=== PATIENT | female | born 1980 | race Caucasian/White ===

== ENCOUNTER 2016-06-19 18:40 | Emergency (ER) | payer SELFPAY ==
[2016-06-19 18:50] VITALS: BP 100/62
[2016-06-19] MEDS ORDERED: predniSONE TAB* 20 MG PO ONE (18:59)
[2016-06-19] MEDS ORDERED: Albuterol 2.5 MG/3 ML NEB.SOL* (0.083%) INH ONE (18:59)
[2016-06-19] MEDS ORDERED: Benzonatate CAP* 100 MG PO ONE (19:04)
[2016-06-19] MEDS ORDERED: Oseltamivir CAP* 75 MG PO ONE (19:45)
--- NOTE | 2016-06-19 19:52 | RAD ---
INDICATION: Cough and chest congestion COMPARISON: None TECHNIQUE: PA and lateral views of the chest were obtained. FINDINGS: The heart and mediastinum are normal in size and contour. The lungs are grossly clear. There is no evidence of large pleural effusion. Visualized bones are normal for the patient's age. There is no radiographic evidence of free air beneath the diaphragm IMPRESSION: No radiographic evidence of acute cardiopulmonary disease.
--- NOTE | 2016-06-19 21:00 | UC ---
Dar Crockett Erika, scribed for Natali Guzman MD on 06/19/16 at 1904 . Respiratory Complaint HPI - HPI Summary HPI Summary: Patient is a 35-year-old female presenting to [facility] with a CC of cough. Patient reports she developed a nonproductive cough 1 week ago, which has significantly worsened in the last 2 days. Pt notes SOB and chest pain related to the cough. Associated symptoms include chills, diaphoresis, fatigue, sore throat, and dizziness. She states she has not taken her temperature. She denies pedal edema and calf tenderness. Patient reports she has not taken any OTC medication. She denies Hx asthma, DVT, PE. FHx CAD. Pt reports she is a former smoker who quit a few years ago, and she has passive exposure to smoke. Patient lives with her 4 children. [facility] 05/25/2016 - pt reports she has been abstinent. PSHx tubal ligation. - History of Current Complaint Chief Complaint: UCGeneralIllness Stated Complaint: COUGH AND CHEST CONGESTION Time Seen by Provider: 06/19/16 18:50 Hx Obtained From: Patient Hx Last Menstrual Period: 05/25/16 Onset/Duration: Gradual Onset, Lasting Weeks - 1 week, Still Present, Worse Since - 2 days Severity Initially: Mild Severity Currently: Moderate Pain Intensity: 0 Pain Scale Used: 0-10 Numeric Character: Cough: Nonproductive Aggravating Factors: Deep Breaths Alleviating Factors: Nothing Associated Signs And Symptoms: Positive: Chills, Dizziness. Negative: Calf Pain , Calf Swelling - Allergies/Home Medications Allergies/Adverse Reactions: Allergies Allergy/AdvReac Type Severity Reaction Status Date / Time Latex Allergy Rash Verified 02/09/15 16:18 Environmental Allergy Eyes Uncoded 02/09/15 16:18 Itchy/Swollen/Red/Watery PMH/Surg Hx/FS Hx/Imm Hx Endocrine History Of: Denies: Diabetes Respiratory History Of: Denies: Asthma GI/ History Of: Reports: Gastroesophageal Reflux, Gall Bladder Disease - removed. Cancer History Of: Denies: Lung Cancer Other History Of: Negative For: Anticoagulant Therapy - Surgical History Surgical History: Yes Surgery Procedure, Year, and Place: 4 C-sections,gallbladder 12/2011, tubal ligation - Family History Known Family History: Positive: Cardiac Disease - Social History Occupation: Employed Full-time Lives: With Family Alcohol Use: None Substance Use Type: None Smoking Status (MU): Former Smoker Have You Smoked in the Last Year: No When Did the Patient Quit Smoking/Using Tobacco: 2 years ago Household Exposure Type: Cigarettes - Immunization History Most Recent Tetanus Shot: Within last 10 years Review of Systems Constitutional: Chills, Fatigue, Other - diaphoresis Skin: Negative Eyes: Negative ENT: Sore Throat Respiratory: Shortness Of Breath, Cough Cardiovascular: Negative Gastrointestinal: Negative Genitourinary: Negative Motor: Negative Neurovascular: Negative Musculoskeletal: Negative Neurological: Other - dizziness Psychological: Negative All Other Systems Reviewed And Are Negative: Yes Physical Exam Triage Information Reviewed: Yes Appearance: Well-Appearing, Well-Nourished, Pain Distress - mild Vital Signs: Initial Vital Signs Temp 98.6 F 06/19/16 18:45 Pulse 107 06/19/16 18:45 Resp 20 06/19/16 18:45 BP 100/62 06/19/16 18:45 Pulse Ox 97 06/19/16 18:45 tachycardia noted Vital Signs Reviewed: Yes Eyes: Positive: Conjunctiva Clear, Other: - EOMI ENT: Positive: Normal ENT inspection Neck: Positive: Supple Respiratory: Positive: Decreased breath sounds, Wheezing, Other: - Cannot take a deep breath without coughing Cardiovascular: Positive: No Murmur, Pulses Normal, Brisk Capillary Refill, Tachycardia Abdomen Description: Positive: Nontender, No Organomegaly, Soft. Negative: Distended, Guarding, McBurney's Point Tenderness, Peritoneal Signs, Pulsatile Mass Bowel Sounds: Positive: Present Musculoskeletal: Positive: Strength Intact, ROM Intact, Other: - No calf tenderness Neurological: Positive: Alert, Muscle Tone Normal Psychological Exam: Normal Skin Exam: Normal UC Diagnostic Evaluation - Laboratory O2 Sat by Pulse Oximetry: 97 Diagnostic Studies Comment: Influenza A: Negative. Influenza B: Positive. Rapid Strep: Negative. CXR read by radiologist - IMPRESSION: No radiographic evidence of acute cardiopulmonary disease. Re-Evaluation - Re-Evaluation First Eval Re-Evaluation Time: 19:38 Change: Improved Comment: Patient was able to do the nebulizer. Much better inspirations. Increased aeration. Respiratory Course/Dx - Course Course Of Treatment: pt with resp distress and wheezing with influenza B. Will treat with tamiflu because of the respiratory status and do not want pt to develop influenza pneumonia. Consider that pt qualifies to start the tamiflu because her symptoms acutely worsened less than 48 hrs ago. - Differential Dx/Diagnosis Differential Diagnosis/HQI/PQRI: Asthma, Bronchitis, Influenza, Lower Resp Infection Provider Diagnoses: 1. Influenza B. 2. Bronchitis. 3. Bronchospasm Discharge - Discharge Plan Condition: Stable Disposition: HOME Prescriptions: Albuterol HFA INHALER* [Ventolin HFA Inhaler*] 2 puff INH Q4H PRN #1 mdi PRN Reason: Cough Benzonatate CAP* [Tessalon 100 MG CAP*] 100 mg PO TID PRN #20 cap PRN Reason: Cough Oseltamivir CAP* [Tamiflu CAP*] 75 mg PO BID #10 cap guaiFENesin/CODIEN 100MG-10MG* [Robitussin AC 100Mg-10Mg*] 5 ml PO Q4H PRN #100 ml MDD 20ml PRN Reason: Cough predniSONE TAB* [Deltasone TAB*] 40 mg PO DAILY #10 tab Patient Education Materials: Acute Bronchitis (ED), Bronchospasm (ED), Influenza (ED) Forms: *Work Release Referrals: Leslie Villar MD [Primary Care Provider] - 2 Days The documentation as recorded by the Dar christy Erika accurately reflects the service I personally performed and the decisions made by , Natali Guzman MD.
== END 2016-06-19 20:21 | disposition home or self-care (01) ==
LOC: UCEAST 18:40
DX: J11.1 Influenza due to unidentified influenza virus with other respiratory manifestations (principal); J40 Bronchitis, not specified as acute or chronic; J98.01 Acute bronchospasm; K21.9 Gastro-esophageal reflux disease without esophagitis; Z87.891 Personal history of nicotine dependence; Z91.040 Latex allergy status; Z90.49 Acquired absence of other specified parts of digestive tract
CPT/HCPCS: 71020; 87502; 87651; 99213; A9270-GY; G0463; J7512

== ENCOUNTER 2016-10-22 13:31 | Emergency (ER) | payer OTHER ==
[2016-10-22] MEDS ORDERED: NS 0.9% 1000 ML* 1,000 ML IV ONE ×2 (15:17→18:36)
[2016-10-22] MEDS ORDERED: Ketorolac INJ* 30 MG/ML 1 ML VIAL IV ONE ×2 (15:17→18:36)
[2016-10-22 15:33] LABS: Hematocrit 39 % (35-47); Hemoglobin 12.8 g/dl (12.0-16.0); Mean Corpuscular HGB Conc 33 g/dl (31-36); Mean Corpuscular Hemoglobin 29 pg (27-31); Mean Corpuscular Volume 87 fL (80-97); Mean Platelet Volume 8 um3 (7.4-10.4); Red Blood Count 4.46 10^6/ul (4.0-5.4); Red Cell Distribution Width 14 % (10.5-15); White Blood Count 11.8 10^3/ul (3.5-10.8)
[2016-10-22 15:51] LABS: Albumin 4.1 g/dL (3.2-5.2); C Reactive Protein 2.37 mg/L (< 5.00); Calcium 9.2 mg/dL (8.6-10.3); EGFR African American 92.3 (>60); EGFR Non-African American 71.8 (>60); Globulin 3.3 g/dL (2-4); Potassium 3.9 mmol/L (3.5-5.0); Total Bilirubin 0.8 mg/dL (0.2-1.0); Total Protein 7.4 g/dL (6.4-8.9)
--- NOTE | 2016-10-22 16:03 | RAD ---
Indication: RIGHT upper quadrant abdominal pain. Post cholecystectomy. Comparison: June 18, 2014 Technique: RIGHT upper quadrant ultrasound. Report: Appropriate direction flow documented in the portal and hepatic veins. 16.3 cm liver is normal in echogenicity. Negative for focal hepatic lesions. Negative for intrahepatic biliary dilatation. Well visualized 7.6 mm common bile duct without conspicuous ductal stones. Post cholecystectomy. Unremarkable well visualized pancreas. Negative for pancreatic duct dilatation. Negative for ascites. 10.7 x 4.2 x 5.4 cm RIGHT kidney is unremarkable. IMPRESSION: Post cholecystectomy likely accounting for borderline prominence of the common bile duct without visualized intrahepatic biliary dilatation. No ductal stones visualized. Tenderness at the RIGHT upper quadrant noted on exam.
[2016-10-22 17:37] LABS: Urine Bilirubin Negative (Negative); Urine Glucose Negative (Negative); Urine Nitrite Negative (Negative)
[2016-10-22] MEDS ORDERED: Ondansetron INJ* 2 MG/ML VIAL IV ONE (18:36)
--- NOTE | 2016-10-22 18:55 | ED ---
Kae Crockett Alfonso, scribed for Hardeep Grewal MD on 10/22/16 at 1512 . Abdominal Pain/Female - HPI Summary HPI Summary: This patient is a 35 year old F BIBA to [facility] accompanied by female with a chief complaint of RUQ abdominal pain since 1300 today. The pain radiates to her back. The CC is described as it felt like I got punched in the stomach and sharp. The patient rates the pain 7/10 in severity. Symptoms aggravated by nothing. Symptoms alleviated by nothing. Patient reports vomiting, and back pain. - History of Current Complaint Chief Complaint: EDAbdPain Stated Complaint: ABD PAIN Time Seen by Provider: 10/22/16 14:56 Hx Obtained From: Patient Onset/Duration: Sudden Onset, Lasting Hours - 1300 today, Still Present Timing: Constant Severity Initially: Moderate Severity Currently: Moderate Pain Intensity: 7 Pain Scale Used: 0-10 Numeric Location: Discrete At: RUQ Radiates: Yes Radiates to: Back Character: Sharp, Other: - it felt like I got punched in the stomach and sharp Aggravating Factor(s): Nothing Alleviating Factor(s): Nothing Associated Signs and Symptoms: Positive: Other: - vomiting, and back pain. Allergies/Adverse Reactions: Allergies Allergy/AdvReac Type Severity Reaction Status Date / Time Latex Allergy Rash Verified 10/22/16 13:41 Environmental Allergy Eyes Uncoded 10/22/16 13:41 Itchy/Swollen/Red/Watery PMH/Surg Hx/FS Hx/Imm Hx Endocrine/Hematology History: Reports: Hx Anemia Denies: Hx Anticoagulant Therapy, Hx Blood Disorders, Hx Blood Transfusions, Hx Bone Marrow Disease, Hx Diabetes, Hx Systemic Lupus Erythematosus, Hx Sickle Cell Disease, Hx Thyroid Disease, Hx Unexplained Bleeding, Other Endocrine/ Hematological Disorders Cardiovascular History: Reports: Hx Hypotension, Hx Syncope Denies: Hx Aneurysm, Hx Angina, Hx Angioplasty, Hx Auto Implanted Cardiovert Defib, Hx Cardiac Arrest, Hx Cardiomegaly, Hx Congenital Heart Disease, Hx Congestive Heart Failure, Hx Coronary Artery Disease, Hx Deep Vein Thrombosis, Hx Hypercholesterolemia, Hx Hypertension, Hx Myocardial Infarction, Hx Pacemaker /ICD, Hx Peripheral Vascular Disease, Hx Rheumatic Fever, Hx Valvular Heart Disease, Other Cardiovascular Problems/Disorders Respiratory History: Reports: Hx Seasonal Allergies Denies: Hx Asthma, Hx Chronic Bronchitis, Hx Chronic Obstructive Pulmonary Disease (COPD), Hx Cystic Fibrosis, Hx Lung Cancer, Hx Pleural Effusion, Hx Pneumonia, Hx Pulmonary Edema, Hx Pulmonary Embolism, Hx Sleep Apnea, Other Respiratory Problems/Disorders GI History: Reports: Hx Gall Bladder Disease - removed. Denies: Hx Cirrhosis, Hx Crohn's Disease, Hx Diverticulosis, Hx Gastroesophageal Reflux Disease, Hx Gastrointestinal Bleed, Hx Hiatal Hernia, Hx Irritable Bowel, Hx Jaundice, Hx Obstructive Bowel, Hx Ileostomy, Hx Pyloric Stenosis, Hx Ulcer, Hx Urosepsis, Other GI Disorders History: Denies: Hx Acute Renal Failure, Hx Benign Prostatic Hyperplasia, Hx Chronic Renal Failure, Hx Dialysis, Hx Kidney Infection, Hx Kidney Stones, Hx Renal Disease, Other Problems/Disorders Musculoskeletal History: Reports: Hx Back Problems Denies: Hx Arthritis, Hx Bursitis, Hx Congenital Bone Abnormalities, Hx Fibromyalgia, Hx Gout, Hx Orthopedic Injury, Hx Osteoporosis, Hx Scoliosis, Hx Tendonitis, Other Musculoskeletal History Sensory History: Denies: Hx Cataracts, Hx Contacts or Glasses, Hx Glaucoma, Hx Hearing Aid Opthamlomology History: Denies: Hx Cataracts, Hx Contacts or Glasses, Hx Glaucoma Neurological History: Denies: Hx Dementia, Hx Developmental Delay, Hx Headaches, Hx Migraine, Hx Seizures, Hx Spinal Cord Injury, Hx Transient Ischemic Attacks (TIA), Other Neuro Impairments/Disorders Psychiatric History: Denies: Hx Anxiety, Hx Attention Deficit Hyperactivity Disorder, Hx Eating Disorder, Hx Depression, Hx Panic Disorder, Hx Post Traumatic Stress Disorder, Hx Inpatient Treatment, Hx Community Mental Health Tx, Hx Schizophrenia, Hx Bipolar Disorder, Hx Suicide Attempt, Hx Substance Abuse, Other Psychiatric Issues/Disorders - Cancer History Hx Chemotherapy: No - Surgical History Surgery Procedure, Year, and Place: 4 C-sections,gallbladder 12/2011, tubal ligation Hx Anesthesia Reactions: No Infectious Disease History: No Infectious Disease History: Denies: Hx Clostridium Difficile, Hx Hepatitis, Hx Human Immunodeficiency Virus (HIV), Hx of Known/Suspected MRSA, Hx Shingles, Hx Tuberculosis, Hx Known/ Suspected VRE, Hx Known/Suspected VRSA, History Other Infectious Disease, Traveled Outside the [place] in Last 30 Days - Family History Known Family History: Positive: Cardiac Disease - Social History Alcohol Use: Occasionally Substance Use Type: Reports: None Smoking Status (MU): Former Smoker Have You Smoked in the Last Year: No Review of Systems Positive: Abdominal Pain, Vomiting Positive: Other - Back pain All Other Systems Reviewed And Are Negative: Yes Physical Exam Triage Information Reviewed: Yes Vital Signs On Initial Exam: Initial Vitals Temp Pulse Resp BP Pulse Ox 98.4 F 66 15 106/69 99 10/22/16 13:38 10/22/16 13:38 10/22/16 13:38 10/22/16 13:38 10/22/16 13:38 Vital Signs Reviewed: Yes Appearance: Positive: Well-Appearing, No Pain Distress Skin: Positive: Warm, Skin Color Reflects Adequate Perfusion, Dry Head/Face: Positive: Normal Head/Face Inspection Eyes: Positive: Normal ENT: Positive: Normal ENT inspection Neck: Positive: Supple, Nontender Respiratory/Lung Sounds: Positive: Clear to Auscultation, Breath Sounds Present Cardiovascular: Positive: RRR Abdomen Description: Positive: Soft, Other: - Mild RUQ tenderness Bowel Sounds: Positive: Present Musculoskeletal: Positive: Normal Neurological: Positive: Normal, Sensory/Motor Intact, Alert, Oriented to Person Place, Time, CN Intact II-III Psychiatric: Positive: Affect/Mood Appropriate - Cristian Coma Scale Coma Scale Total: 15 Diagnostics - Vital Signs Vital Signs Temp Pulse Resp BP Pulse Ox 10/22/16 14:30 58 102/63 97 10/22/16 14:00 63 105/64 98 10/22/16 13:44 63 111/70 99 10/22/16 13:38 98.4 F 66 15 106/69 99 - Laboratory Lab Results: Lab Results 10/22/16 10/22/16 10/22/16 Range/Units 15:25 15:25 15:25 WBC 11.8 H (3.5-10.8) 10^3/ul RBC 4.46 (4.0-5.4) 10^6/ul Hgb 12.8 (12.0-16.0) g/dl Hct 39 (35-47) % MCV 87 (80-97) fL MCH 29 (27-31) pg MCHC 33 (31-36) g/dl RDW 14 (10.5-15) % Plt Count 235 (150-450) 10^3/ul MPV 8 (7.4-10.4) um3 Neut % (Auto) 76.5 (38-83) % Lymph % (Auto) 13.7 L (25-47) % Moody % (Auto) 7.3 (1-9) % Eos % (Auto) 2.2 (0-6) % Baso % (Auto) 0.3 (0-2) % Absolute Neuts (auto) 9.1 H (1.5-7.7) 10^3/ul Absolute Lymphs (auto) 1.6 (1.0-4.8) 10^3/ul Absolute Monos (auto) 0.9 H (0-0.8) 10^3/ul Absolute Eos (auto) 0.3 (0-0.6) 10^3/ul Absolute Basos (auto) 0 (0-0.2) 10^3/ul Absolute Nucleated RBC 0 10^3/ul Nucleated RBC % 0 Sodium 138 (133-145) mmol/L Potassium 3.9 (3.5-5.0) mmol/L Chloride 103 (101-111) mmol/L Carbon Dioxide 31 (22-32) mmol/L Anion Gap 4 (2-11) mmol/L BUN 16 (6-24) mg/dL Creatinine 0.89 (0.51-0.95) mg/dL Est GFR ( Amer) 92.3 (>60) Est GFR (Non-Af Amer) 71.8 (>60) BUN/Creatinine Ratio 18.0 (8-20) Glucose 104 H (70-100) mg/dL Lactic Acid 0.9 (0.5-2.0) mmol/L Calcium 9.2 (8.6-10.3) mg/dL Total Bilirubin 0.80 (0.2-1.0) mg/dL AST 184 H (13-39) U/L ALT 101 H (7-52) U/L Alkaline Phosphatase 93 (34-104) U/L C-Reactive Protein 2.37 (< 5.00) mg/L Total Protein 7.4 (6.4-8.9) g/dL Albumin 4.1 (3.2-5.2) g/dL Globulin 3.3 (2-4) g/dL Albumin/Globulin Ratio 1.2 (1-3) Lipase 14 (11.0-82.0) U/L Beta HCG, Quant 0.64 mIU/mL Urine Color Urine Appearance Urine pH (5-9) Ur Specific Hudson (1.010-1.030) Urine Protein (Negative) Urine Ketones (Negative) Urine Blood (Negative) Urine Nitrate (Negative) Urine Bilirubin (Negative) Urine Urobilinogen (Negative) Ur Leukocyte Esterase (Negative) Urine Glucose (Negative) 10/22/16 Range/Units 17:17 WBC (3.5-10.8) 10^3/ul RBC (4.0-5.4) 10^6/ul Hgb (12.0-16.0) g/dl Hct (35-47) % MCV (80-97) fL MCH (27-31) pg MCHC (31-36) g/dl RDW (10.5-15) % Plt Count (150-450) 10^3/ul MPV (7.4-10.4) um3 Neut % (Auto) (38-83) % Lymph % (Auto) (25-47) % Moody % (Auto) (1-9) % Eos % (Auto) (0-6) % Baso % (Auto) (0-2) % Absolute Neuts (auto) (1.5-7.7) 10^3/ul Absolute Lymphs (auto) (1.0-4.8) 10^3/ul Absolute Monos (auto) (0-0.8) 10^3/ul Absolute Eos (auto) (0-0.6) 10^3/ul Absolute Basos (auto) (0-0.2) 10^3/ul Absolute Nucleated RBC 10^3/ul Nucleated RBC % Sodium (133-145) mmol/L Potassium (3.5-5.0) mmol/L Chloride (101-111) mmol/L Carbon Dioxide (22-32) mmol/L Anion Gap (2-11) mmol/L BUN (6-24) mg/dL Creatinine (0.51-0.95) mg/dL Est GFR ( Amer) (>60) Est GFR (Non-Af Amer) (>60) BUN/Creatinine Ratio (8-20) Glucose (70-100) mg/dL Lactic Acid (0.5-2.0) mmol/L Calcium (8.6-10.3) mg/dL Total Bilirubin (0.2-1.0) mg/dL AST (13-39) U/L ALT (7-52) U/L Alkaline Phosphatase (34-104) U/L C-Reactive Protein (< 5.00) mg/L Total Protein (6.4-8.9) g/dL Albumin (3.2-5.2) g/dL Globulin (2-4) g/dL Albumin/Globulin Ratio (1-3) Lipase (11.0-82.0) U/L Beta HCG, Quant mIU/mL Urine Color Yellow Urine Appearance Turbid Urine pH 9.0 (5-9) Ur Specific Hudson 1.015 (1.010-1.030) Urine Protein Negative (Negative) Urine Ketones Negative (Negative) Urine Blood Negative (Negative) Urine Nitrate Negative (Negative) Urine Bilirubin Negative (Negative) Urine Urobilinogen Negative (Negative) Ur Leukocyte Esterase Negative (Negative) Urine Glucose Negative (Negative) Result Diagrams: 10/22/16 15:25 10/22/16 15:25 Lab Statement: Any lab studies that have been ordered have been reviewed, and results considered in the medical decision making process. - Additional Comments Diagnostic Additional Comments: US abdomen reveals, per radiologist, Post cholecystectomy likely accounting for borderline prominence of the common bile duct without visualized intrahepatic biliary dilatation. No ductal stones visualized. Tenderness at the RIGHT upper quadrant noted on exam. ED physician has reviewed this radiology report and agrees. Re-Evaluation - Re-Evaluation First Eval Re-Evaluation Time: 18:32 Comment: Patient still has abd tenderness. Abdominal Pain Fem Course/Dx - Course Course Of Treatment: Ms. Gregory presented with the sudden onset of RUQ pain. Her W/U revealed a mild leukocytosis and elevation of of her transaminases, however, an U/S showed no CBD stone. She continued to C/O pain and a CT is pending. She will be turned over to Dr. Sutton at change of shift. - Diagnoses Provider Diagnoses: Abdominal pain Discharge - Discharge Plan Condition: Stable Disposition: OTHER Discharge Disposition Comment: Change of shift The documentation as recorded by the Kae christy Alfonso accurately reflects the service I personally performed and the decisions made by me, Hardeep Grewal MD.
[2016-10-22] MEDS ORDERED: Iohexol 300* (CONTRAST) 10 ML SDV IV ONE (19:01)
--- NOTE | 2016-10-22 20:15 | RAD ---
INDICATION: RIGHT upper quadrant pain for 40 minutes. Post cholecystectomy. Previous C-sections. COMPARISON: No relevant prior exams available on the [facility] [place] for comparison. TECHNIQUE: Multidetector CT images were obtained from the lung bases to the ischial tuberosities with 97 mL Omnipaque 300 IV and oral contrast. Multiplanar reformation. REPORT: Unremarkable visualized inferior thorax. Periportal edema at the liver likely attributable to high volume state given full physiologic distention of the IVC. Post cholecystectomy. Negative for biliary dilatation or focal hepatic lesions. Unremarkable gallbladder and spleen. Negative for CT abnormality of the upper GI, small bowel, or retrocecal appendix. Unremarkable colon. Negative for ascites, free air, hernias. Normal adrenal glands. Unremarkable kidneys with symmetric nephrograms and pyelograms. Unremarkable nondilated ureters and incompletely distended urinary bladder. Unremarkable anteverted uterus. Unremarkable RIGHT adnexal region. 4.1 x 5.3 x 4.6 cm well-circumscribed water density cyst of the LEFT ovary. Negative for lymphadenopathy. Unremarkable abdominal aorta and iliac arteries. Physiologic distention of the IVC. Negative for suspicious osseous lesions. Bilateral L5 spondylolysis with minimal associated grade 1 L5-S1 anterolisthesis. Advanced L4-L5 disc space narrowing with dorsal disc bulge with only mild resulting impression on the thecal sac. Disc bulge also evident at L5-S1 without significant resulting central canal stenosis. IMPRESSION: 1. 4.1 x 5.3 x 4.6 cm well-circumscribed water density cyst of the LEFT ovary most suspicious for a follicular cyst. Given size of the lesion pelvic ultrasound suggested for further evaluation and to confirm normal vascular flow to the LEFT ovary. 2. Periportal edema likely attributable to high volume state given full physiologic distention of the IVC.
[2016-10-22] MEDS ORDERED: oxyCODONE/Acetamin 5/325 MG* TAB PO ONE (20:56)
[2016-10-22] MEDS ORDERED: Ondansetron ODT TAB* 4 MG PO ONE (21:03)
--- NOTE | 2016-10-22 21:32 | PN ---
Michelle Crockett Emily, scribed for Nico Sutton MD on 10/22/16 at 2027 . Progress Note - Progress Note Date of Service: 10/22/16 Note: Sign out from Dr. Grewal at shift change pending CT results and dispo. CT A/P read by radiologist. IMPRESSION: 1. 4.1 x 5.3 x 4.6 cm well-circumscribed water density cyst of the LEFT ovary most suspicious for a follicular cyst. Given size of the lesion pelvic ultrasound suggested for further evaluation and to confirm normal vascular flow to the LEFT ovary. 2. Periportal edema likely attributable to high volume state given full physiologic distention of the IVC. Re-eval 2052: Discussed US, CT scan, and elevated LFT levels with pt. Also discussed risk of retained stone in the common bile duct, which was not shown on scan. Pt denies left abd pain. Pt should follow with PCP concerning elevated LFT levels. Pt should also follow up with her [employer] Supervisor regarding the results of the US and CT scan. Pt voiced understanding. Dx: RUQ pain and left ovarian cyst. Dispo: Pt is stable for discharge home. Pt will be sent home with a Rx for percocet and Zofran. The documentation as recorded by the ebonyibeMichelle Emily accurately reflects the service I personally performed and the decisions made by , Nico Sutton MD.
[2016-10-22 21:54] VITALS: BP 109/65
== END 2016-10-22 21:56 | disposition home or self-care (01) ==
LOC: ED 13:31
DX: R10.11 Right upper quadrant pain (principal); Z87.891 Personal history of nicotine dependence; N83.202 Unspecified ovarian cyst, left side
CPT/HCPCS: 36415; 74177; 76705; 80053; 80074; 81003; 83605; 83690; 84702; 85025; 86140; 96360; 96374; 96375; 96376; 99284; A9270-GY; J1885; J2405; Q9967

== ENCOUNTER 2017-11-11 08:26 | Emergency (ER) | payer SELFPAY ==
[2017-11-11 08:44] VITALS: BP 117/59
--- NOTE | 2017-11-11 09:24 | UC ---
Abdominal Pain Female HPI - HPI Summary HPI Summary: ONSET 2 DAYS AGO OF RIGHT UPPER QUADRANT AND EPIGASTRIC PAIN RADIATING THROUGH TO HER BACK. HAS NAUSEA BUT NO VOMITING. NO DIARRHEA. NO FEVER. HAD SIMILAR SYMPTOMS ABOUT A YEAR AGO AND WAS FOUND TO HAVE ELEVATED LFTS WHICH IMPROVED WITHOUT INTERVENTION. HAS REMOTE HISTORY OF CHOLECYSTECTOMY. SYMPTOMS NOT WORSENED BY FOOD. KIDS ALSO HAVE GI SYMPTOMS. STATES SHE ACTUALLY FEELS BETTER TODAY THAN YESTERDAY. - History of Current Complaint Chief Complaint: UCGI Stated Complaint: VOMITING,ABD PAIN Time Seen by Provider: 11/11/17 08:42 Hx Obtained From: Patient Hx Last Menstrual Period: 11/03/17 Onset/Duration: Sudden Onset, Lasting Days, Still Present Timing: Constant Severity Initially: Moderate Severity Currently: Moderate Pain Intensity: 3 Pain Scale Used: 0-10 Numeric Location: Discrete At: RUQ, Epigastric Radiates: Yes Radiates to: Back Character: Sharp Aggravating Factor(s): Nothing Alleviating Factor(s): Nothing Associated Signs and Symptoms: Positive: Back Pain, Decreased Appetite, Nausea. Negative: Fever, Chest Pain, Blood in Stool, Urinary Symptoms, Vaginal Bleeding, Vomiting, Diarrhea Allergies/Adverse Reactions: Allergies Allergy/AdvReac Type Severity Reaction Status Date / Time latex Allergy Rash Verified 11/11/17 08:38 Environmental Allergy Eyes Uncoded 11/11/17 08:38 Itchy/Swollen/Red/Watery PMH/Surg Hx/FS Hx/Imm Hx Previously Healthy: Yes Other History Of: Negative For: Anticoagulant Therapy - Surgical History Surgical History: Yes Surgery Procedure, Year, and Place: 4 C-sections,gallbladder 12/2011, tubal ligation - Family History Known Family History: Positive: Cardiac Disease, Hypertension - Social History Alcohol Use: Occasionally Substance Use Type: Marijuana Substance Use Comment - Amount & Last Used: rarely Smoking Status (MU): Former Smoker Have You Smoked in the Last Year: No When Did the Patient Quit Smoking/Using Tobacco: 20 yrs Household Exposure Type: Cigarettes - Immunization History Most Recent Tetanus Shot: Within last 10 years Review of Systems Constitutional: Negative Respiratory: Negative Cardiovascular: Negative Gastrointestinal: Abdominal Pain, Nausea Genitourinary: Negative All Other Systems Reviewed And Are Negative: Yes Physical Exam Triage Information Reviewed: Yes Appearance: Well-Nourished, Pain Distress - MILD Vital Signs: Initial Vital Signs Temp 97.6 F 09/28/18 08:31 Pulse 79 11/11/17 08:31 Resp 16 11/11/17 08:31 BP 117/59 11/11/17 08:31 Pulse Ox 100 11/11/17 08:31 Laboratory Tests 11/11/17 08:46 POC Urine Color Yellow POC Urine Clarity Clear POC Urine pH 6.0 POC Ur Specif [place] >= 1.030 POC Urine Protein Negative POC Ur Glucose (UA) Negative POC Urine Ketones Negative POC Urine Blood 1+ A POC Urine Nitrite Negative POC Urine Bilirubin Negative POC Urine Urobilinogen 0.2 POC U Leukocyte Esteras Negative Vital Signs Reviewed: Yes Eyes: Positive: Conjunctiva Clear ENT: Positive: Hearing grossly normal Neck: Positive: Supple Respiratory Exam: Normal Cardiovascular Exam: Normal Abdomen Description: Positive: Soft, Other: - MILDLY TENDER EPIGASTRIC AND RUQ AREAS. NO REBOUND OR RIGIDITY. Negative: CVA Tenderness (R), CVA Tenderness (L) , Distended, Guarding Bowel Sounds: Positive: Present Musculoskeletal: Positive: No Edema Neurological: Positive: Alert Psychological: Positive: Age Appropriate Behavior Skin: Negative: rashes Abd Pain Female Course/Dx - Course Course Of Treatment: DISCUSSED TRANSFER TO ED VERSUS CHECKING LABS HERE AND SENDING HOME WITH CAREFUL OUTPATIENT OBSERVATION. PATIENT DECLINES ED TRANSFER TODAY. STATES SHE IS ACTUALLY FEELING BETTER TODAY THAN YESTERDAY AND WILL GO TO THE ED IF HER SYMPTOMS WORSEN AGAIN. OF NOTE - PT WITH SMALL AMOUNT OF BLOOD ON URINE DIP BUT IS AT TAIL END OF MENSES. - Differential Dx/Diagnosis Provider Diagnoses: RUQ ABDOMINAL PAIN Discharge - Sign-Out/Discharge Documenting (check all that apply): Patient Departure All imaging exams completed and their final reports reviewed: No Studies - Discharge Plan Condition: Stable Disposition: HOME Prescriptions: Ondansetron ODT TAB* [Zofran Odt TAB*] 4 mg PO Q6H PRN #20 tab.odt PRN Reason: Nausea/Vomiting Patient Education Materials: Abdominal Pain (ED) Forms: *Work Release Referrals: Leslie Villar MD [Primary Care Provider] - If Needed Additional Instructions: UNCLEAR ETIOLOGY OF YOUR DISCOMFORT TODAY. GIVEN YOUR HISTORY OF ELEVATED LFTS WILL DRAW LABS INCLUDING BLOOD COUNT AND METABOLIC PANEL. ZOFRAN NEEDED FOR NAUSEA. YOU MAY HAVE PICKED UP A VIRAL ILLNESS AND HOPEFULLY WILL CONTINUE TO FEEL BETTER OVER THE NEXT FEW DAYS. GO TO THE ED WITHOUT FAIL IF YOUR SYMPTOMS WORSEN. ENSURE ADEQUATE HYDRATION. CLEAR LIQUIDS, BLAND DIET. AVOID CAFFEINE, DAIRY, GREASY, SPICY FOODS. ONCE YOU ARE TOLERATING CLEAR LIQUIDS YOU CAN ADVANCE TO SIMPLE, BLAND FOODS. - Billing Disposition and Condition Condition: STABLE Disposition: Home
[2017-11-11 13:00] LABS: ABS Basophils 0 10^3/ul (0-0.2); ABS Eosinophils 0.6 10^3/ul (0-0.6); ABS Lymphocytes 2.5 10^3/ul (1.0-4.8); ABS Monocytes 0.5 10^3/ul (0-0.8); ABS Neutrophils 3.5 10^3/ul (1.5-7.7); ABS Nucleated RBC 0 10^3/ul; Eosinophil % 8.2 % (0-6); Hematocrit 39 % (35-47); Hemoglobin 13.3 g/dl (12.0-16.0); Mean Corpuscular HGB Conc 34 g/dl (31-36); Mean Corpuscular Hemoglobin 31 pg (27-31); Mean Corpuscular Volume 89 fL (80-97); Mean Platelet Volume 8.2 um3 (7.4-10.4); Nucleated Red Blood Cells % 0; Platelet Count 275 10^3/ul (150-450); Red Blood Count 4.37 10^6/ul (4.00-5.40); Red Cell Distribution Width 13 % (10.5-15); White Blood Count 7.2 10^3/ul (3.5-10.8)
[2017-11-11 13:11] LABS: EGFR Non-African American 95.7 (>60)
== END 2017-11-11 09:25 | disposition home or self-care (01) ==
LOC: UCEAST 08:26
DX: R10.11 Right upper quadrant pain (principal); R10.13 Epigastric pain; M54.9 Dorsalgia, unspecified; R11.0 Nausea; Z90.49 Acquired absence of other specified parts of digestive tract; Z91.040 Latex allergy status; Z87.891 Personal history of nicotine dependence
CPT/HCPCS: 36415; 80053; 81003; 85025; 99212; G0463

== ENCOUNTER → 2018-01-25 18:05 | Emergency (ER) | payer SELFPAY ==
[~2018-01-25 18:05] MED LIST: Iohexol 300* (CONTRAST) 10 ML SDV IV ONE; Ketorolac INJ* 30 MG/ML 1 ML VIAL IV PUSH ONE; Morphine VIAL* 4 MG/ML VIAL (1 ml vial) IV ONE; NS 0.9% 1000 ML* 1,000 ML IV ONE; Ondansetron INJ* 2 MG/ML VIAL IV ONE; Pantoprazole IV* 40 MG IV ONE
[2018-01-25 18:52] LABS: ABS Basophils 0.1 10^3/ul (0-0.2); ABS Eosinophils 0.4 10^3/ul (0-0.6); ABS Lymphocytes 2.4 10^3/ul (1.0-4.8); ABS Monocytes 0.9 10^3/ul (0-0.8); ABS Neutrophils 6.7 10^3/ul (1.5-7.7); ABS Nucleated RBC 0 10^3/ul; Hematocrit 41 % (35-47); Hemoglobin 13.7 g/dl (12.0-16.0); Lymphocyte % 22.5 %; Mean Corpuscular HGB Conc 34 g/dl (31-36); Mean Corpuscular Hemoglobin 30 pg (27-31); Mean Corpuscular Volume 89 fL (80-97); Mean Platelet Volume 7.2 fL (7.4-10.4); Nucleated Red Blood Cells % 0; Platelet Count 313 10^3/ul (150-450); Red Cell Distribution Width 13 % (10.5-15); White Blood Count 10.4 10^3/ul (3.5-10.8)
[2018-01-25 19:21] LABS: EGFR Non-African American 76.9 (>60)
--- NOTE | 2018-01-25 21:55 | ED ---
GI/ HPI - HPI Summary HPI Summary: 37-year-old female presents with sudden onset epigastric pain today. States that radiates to her back. States she's had this pain before which it elevated LFTs in the past. She had a gallbladder removed couple years ago. She admits to nausea and vomiting. She denies any diarrhea or constipation. Denies any urinary symptoms or abnormal vaginal discharge. no chest pain or SOB. no fevers. - History of Current Complaint Chief Complaint: EDAbdPain Time Seen by Provider: 01/25/18 21:31 Stated Complaint: ABD PAIN/VOMITING Hx Last Menstrual Period: 11/03/17 Pain Intensity: 7 - Allergy/Home Medications Allergies/Adverse Reactions: Allergies Allergy/AdvReac Type Severity Reaction Status Date / Time latex Allergy Rash Verified 11/11/17 08:38 Environmental Allergy Eyes Uncoded 11/11/17 08:38 Itchy/Swollen/Red/Watery PMH/Surg Hx/FS Hx/Imm Hx Endocrine/Hematology History: Reports: Hx Anemia Denies: Hx Anticoagulant Therapy, Hx Blood Disorders, Hx Blood Transfusions, Hx Bone Marrow Disease, Hx Diabetes, Hx Systemic Lupus Erythematosus, Hx Sickle Cell Disease, Hx Thyroid Disease, Hx Unexplained Bleeding, Other Endocrine/ Hematological Disorders Cardiovascular History: Reports: Hx Hypotension, Hx Syncope Denies: Hx Aneurysm, Hx Angina, Hx Angioplasty, Hx Auto Implanted Cardiovert Defib, Hx Cardiac Arrest, Hx Cardiomegaly, Hx Congenital Heart Disease, Hx Congestive Heart Failure, Hx Coronary Artery Disease, Hx Deep Vein Thrombosis, Hx Hypercholesterolemia, Hx Hypertension, Hx Myocardial Infarction, Hx Pacemaker /ICD, Hx Peripheral Vascular Disease, Hx Rheumatic Fever, Hx Valvular Heart Disease, Other Cardiovascular Problems/Disorders Respiratory History: Reports: Hx Seasonal Allergies Denies: Hx Asthma, Hx Chronic Bronchitis, Hx Chronic Obstructive Pulmonary Disease (COPD), Hx Cystic Fibrosis, Hx Lung Cancer, Hx Pleural Effusion, Hx Pneumonia, Hx Pulmonary Edema, Hx Pulmonary Embolism, Hx Sleep Apnea, Other Respiratory Problems/Disorders GI History: Reports: Hx Gall Bladder Disease - removed. Denies: Hx Cirrhosis, Hx Crohn's Disease, Hx Diverticulosis, Hx Gastroesophageal Reflux Disease, Hx Gastrointestinal Bleed, Hx Hiatal Hernia, Hx Irritable Bowel, Hx Jaundice, Hx Obstructive Bowel, Hx Ileostomy, Hx Pyloric Stenosis, Hx Ulcer, Hx Urosepsis, Other GI Disorders History: Denies: Hx Acute Renal Failure, Hx Benign Prostatic Hyperplasia, Hx Chronic Renal Failure, Hx Dialysis, Hx Kidney Infection, Hx Kidney Stones, Hx Renal Disease, Other Problems/Disorders Musculoskeletal History: Reports: Hx Back Problems Denies: Hx Arthritis, Hx Bursitis, Hx Congenital Bone Abnormalities, Hx Fibromyalgia, Hx Gout, Hx Orthopedic Injury, Hx Osteoporosis, Hx Scoliosis, Hx Tendonitis, Other Musculoskeletal History Sensory History: Denies: Hx Cataracts, Hx Contacts or Glasses, Hx Glaucoma, Hx Hearing Aid Opthamlomology History: Denies: Hx Cataracts, Hx Contacts or Glasses, Hx Glaucoma Neurological History: Denies: Hx Dementia, Hx Developmental Delay, Hx Headaches, Hx Migraine, Hx Seizures, Hx Spinal Cord Injury, Hx Transient Ischemic Attacks (TIA), Other Neuro Impairments/Disorders Psychiatric History: Denies: Hx Anxiety, Hx Attention Deficit Hyperactivity Disorder, Hx Eating Disorder, Hx Depression, Hx Panic Disorder, Hx Post Traumatic Stress Disorder, Hx Inpatient Treatment, Hx Community Mental [facility] Tx, Hx Schizophrenia, Hx Bipolar Disorder, Hx Suicide Attempt, Hx Substance Abuse, Other Psychiatric Issues/Disorders - Cancer History Hx Chemotherapy: No - Surgical History Surgery Procedure, Year, and Place: 4 C-sections,gallbladder 12/2011, tubal ligation Hx Anesthesia Reactions: No Infectious Disease History: No Infectious Disease History: Denies: Hx Clostridium Difficile, Hx Hepatitis, Hx Human Immunodeficiency Virus (HIV), Hx of Known/Suspected MRSA, Hx Shingles, Hx Tuberculosis, Hx Known/ Suspected VRE, Hx Known/Suspected VRSA, History Other Infectious Disease, Traveled Outside the [place] in Last 30 Days - Family History Known Family History: Positive: Cardiac Disease, Hypertension - Social History Alcohol Use: Occasionally Substance Use Type: Reports: Marijuana Substance Use Comment - Amount & Last Used: rarely Smoking Status (MU): Former Smoker Have You Smoked in the Last Year: No Review of Systems Negative: Fever Negative: Chest Pain Negative: Shortness Of Breath Positive: Abdominal Pain, Vomiting, Nausea. Negative: Diarrhea All Other Systems Reviewed And Are Negative: Yes Physical Exam Triage Information Reviewed: Yes Vital Signs On Initial Exam: Initial Vitals Temp Pulse Resp BP Pulse Ox 97.9 F 78 18 133/82 100 01/25/18 18:06 18 18:06 01/25/18 18:06 01/25/18 18:06 01/25/18 18:06 Vital Signs Reviewed: Yes Appearance: Positive: Well-Appearing Skin: Positive: Warm, Dry Head/Face: Positive: Normal Head/Face Inspection Eyes: Positive: Normal, Conjunctiva Clear ENT: Positive: Pharynx normal Respiratory/Lung Sounds: Positive: Clear to Auscultation, Breath Sounds Present Cardiovascular: Positive: Normal, RRR Abdomen Description: Positive: Soft, Other: - tenderness epigastric pain Bowel Sounds: Positive: Present Musculoskeletal: Positive: Normal Neurological: Positive: Normal Psychiatric: Positive: Normal Diagnostics - Vital Signs Vital Signs Temp Pulse Resp BP Pulse Ox 01/25/18 21:49 15 01/25/18 20:06 98.7 F 88 16 129/76 98 01/25/18 18:06 97.9 F 78 18 133/82 100 - Laboratory Lab Results: Lab Results 01/25/18 01/25/18 Range/Units 18:41 18:41 WBC 10.4 (3.5-10.8) 10^3/ul RBC 4.60 (4.00-5.40) 10^6/ul Hgb 13.7 (12.0-16.0) g/dl Hct 41 (35-47) % MCV 89 (80-97) fL MCH 30 (27-31) pg MCHC 34 (31-36) g/dl RDW 13 (10.5-15) % Plt Count 313 (150-450) 10^3/ul MPV 7.2 L (7.4-10.4) fL Neut % (Auto) 64.5 % Lymph % (Auto) 22.5 % [place] % (Auto) 8.5 % Eos % (Auto) 4.0 % Baso % (Auto) 0.5 % Absolute Neuts (auto) 6.7 (1.5-7.7) 10^3/ul Absolute Lymphs (auto) 2.4 (1.0-4.8) 10^3/ul Absolute Monos (auto) 0.9 H (0-0.8) 10^3/ul Absolute Eos (auto) 0.4 (0-0.6) 10^3/ul Absolute Basos (auto) 0.1 (0-0.2) 10^3/ul Absolute Nucleated RBC 0 10^3/ul Nucleated RBC % 0 Sodium 139 (135-145) mmol/L Potassium 4.3 (3.5-5.0) mmol/L Chloride 101 (101-111) mmol/L Carbon Dioxide 33 H (22-32) mmol/L Anion Gap 5 (2-11) mmol/L BUN 16 (6-24) mg/dL Creatinine 0.83 (0.51-0.95) mg/dL Est GFR ( Amer) 93.1 (>60) Est GFR (Non-Af Amer) 76.9 (>60) BUN/Creatinine Ratio 19.3 (8-20) Glucose 112 H (70-100) mg/dL Calcium 9.8 (8.6-10.3) mg/dL Total Bilirubin 0.40 (0.2-1.0) mg/dL AST 131 H (13-39) U/L ALT 76 H (7-52) U/L Alkaline Phosphatase 100 (34-104) U/L C-Reactive Protein 6.74 (<8.01) mg/L Total Protein 7.7 (6.4-8.9) g/dL Albumin 4.2 (3.2-5.2) g/dL Globulin 3.5 (2-4) g/dL Albumin/Globulin Ratio 1.2 (1-3) Lipase 14 (11.0-82.0) U/L Beta HCG, Quant < 0.60 mIU/mL Result Diagrams: 01/25/18 18:41 01/25/18 18:41 Lab Statement: Any lab studies that have been ordered have been reviewed, and results considered in the medical decision making process. - CT abd CT Interpretation Completed By: Radiologist Summary of CT Findings: IMPRESSION: 1. No CT findings to correlate with patient 's symptomatology. 2. Left ovarian cysts. No followup indicated. - Ultrasound No standard instances Ultrasound Interpretation Completed By: Radiologist Summary of Ultrasound Findings: IMPRESSION: No sonographic findings to correlate with patient's symptomatology. Re-Evaluation - Re-Evaluation First Eval Re-Evaluation Time: 23:20 Change: Improved Comment: feeling better GIGU Course/Dx - Course Course Of Treatment: 37-year-old female presents with sudden onset epigastric pain today. States that radiates to her back. States she's had this pain before which it elevated LFTs in the past. She had a gallbladder removed couple years ago. She admits to nausea and vomiting. She denies any diarrhea or constipation. Denies any urinary symptoms or abnormal vaginal discharge. On exam tenderness in the epigastric region. white blood cell count normal. crp normal. LFTs are elevated. Gallbladder ultrasound normal. ct abd normal. discussed with lft and pain willl have follow up with urology. patient understand and agrees with plan. - Diagnoses Differential Diagnoses - Female: Gall Bladder Disease, Gastritis, Urinary Tract Infection Provider Diagnoses: Abdominal pain Discharge - Sign-Out/Discharge Documenting (check all that apply): Patient Departure - Discharge Plan Condition: Good Disposition: HOME Patient Education Materials: Acute Abdominal Pain (ED) Referrals: Mireya Espinoza MD [Medical Doctor] - Leslie Villar MD [Primary Care Provider] - Additional Instructions: Take tyenlol or ibuprofen every 6 hours Follow up with GI Return to ED if develop any new or worsening symptoms - Billing Disposition and Condition Condition: GOOD Disposition: Home
[2018-01-25 22:27] LABS: Urine Appearance Turbid; Urine Blood Negative (Negative); Urine Color Yellow; Urine Ketones Negative (Negative); Urine Protein Negative (Negative); Urine Urobilinogen Negative (Negative)
[2018-01-26 00:49] VITALS: BP 106/62
== END | disposition home or self-care (01) ==
LOC: ED 18:05
DX: R10.13 Epigastric pain (principal); R11.2 Nausea with vomiting, unspecified; N83.202 Unspecified ovarian cyst, left side; N85.8 Other specified noninflammatory disorders of uterus; Z91.040 Latex allergy status; Z90.49 Acquired absence of other specified parts of digestive tract; Z87.891 Personal history of nicotine dependence
CPT/HCPCS: 36415; 74177; 76705; 80053; 81003; 83690; 84702; 85025; 86140; 96374; 96375; 99283; J1885; J2270; J2405; Q9967

== ENCOUNTER → 2018-06-14 11:07 | Day surgery (SDC) | payer OTHER ==
[~2018-06-14 11:07] MED LIST changes: +Buffered Lidocaine 1% SYRIN* 1 ML/SYRINGE INTRADERM ONE; +Dexamethasone IV* 4 MG/ML 1 ML (4 MG) IV SLOW PU ONE; +Dexamethasone IV* 4 MG/ML 1 ML (4 MG) ONE; +DiMENhydriNATE IV* 50 MG/ML VIAL IV PUSH PRN; +Famotidine IV* 10 MG/ML 2 ML (20 mg) IV ONE; +Famotidine IV* 10 MG/ML 2 ML (20 mg) ONE; +Glycopyrrolate IV* 0.2 MG/ML 1 ML VIAL ONE; -Iohexol 300* (CONTRAST) 10 ML SDV IV ONE; +KETAMINE HCL* 50 MG/ML 10 ML VIAL ONE; -Ketorolac INJ* 30 MG/ML 1 ML VIAL IV PUSH ONE; +Lactated Ringers 1000 ML Bag* 1,000 ML IV SCH; +Lidocaine 2% PF * 5 ML VIAL ONE; +Midazolam* 1 MG/ML 5 ML VIAL (5 MG) ONE; -Morphine VIAL* 4 MG/ML VIAL (1 ml vial) IV ONE; -NS 0.9% 1000 ML* 1,000 ML IV ONE; +Naloxone* 0.4 MG/ML 1 ML VIAL IV PRN; -Ondansetron INJ* 2 MG/ML VIAL IV ONE; +Ondansetron ODT TAB* 4 MG ONE; +Ondansetron TAB* 4 MG PO ONE; +PROCHLORPERAZINE INJ 5 MG/ML 2 ML VIAL IV PRN; -Pantoprazole IV* 40 MG IV ONE; +Propofol* 10 MG/ML 20 ML BTL ONE; +fentaNYL* 50 MCG/ML 2 ML VIAL (100 MCG VIAL) IV PRN; +fentaNYL* 50 MCG/ML 2 ML VIAL (100 MCG VIAL) ONE; +oxyCODONE/Acetamin 5/325 MG* TAB PO PRN
[2018-06-14 16:31] VITALS: BP 117/74
--- NOTE | 2018-06-15 01:06 | PRO ---
CC: Polo Ruano NP * DATE OF PROCEDURE: 06/14/18 [facility] PROCEDURE: EGD with biopsy. REFERRING PROVIDER: Polo Ruano NP. INDICATIONS: The patient complains of abdominal pain and dysphagia to solid food. Also a history of positive celiac gene testing. Prior attempt of the EGD was incomplete as the patient has had an intolerance to the sedation. On the exam, there was mild esophagitis with a possible Schatzki's ring. The patient was switched to omeprazole 20 mg twice a day. She says today that omeprazole seems to be helping with her heartburn, although she continues to have the abdominal pain and the dysphagia. She occasionally forgets to take the afternoon dose of the omeprazole. MEDICATIONS: Given by Anesthesia. DESCRIPTION OF PROCEDURE: Full disclosure of risks was reviewed with the patient as detailed on the consent form. The patient was placed in the left lateral decubitus position and monitored with continuous pulse oximetry, capnography, interval blood pressure monitoring, and direct observation. A bite block was placed between the patient's teeth. An adult gastroscope was then inserted into the patient's mouth and advanced down the esophagus, into the stomach, and into the distal duodenum. Findings and interventions are described below. FINDINGS: Esophagus was a tubular structure without rings or strictures. There was linear furrowing suggestive of eosinophilic esophagitis. Biopsies obtained from the mid and distal esophagus for evaluation. GE junction was notable for an irregular Z-line occurring between 39 and 40 cm with several islands of salmon-colored mucosa occurring immediately proximal to the GE junction. Biopsies obtained. The scope was then advanced into the stomach. The stomach was examined in the forward and retroflexed views. There was mild gastric erythema diffusely. The scope was then advanced into the duodenum to at least the third portion. The duodenum was normal in appearance. No scalloping or villous blunting appreciated. Biopsies were obtained from the bulb and postbulbar duodenum for histologic evaluation for celiac. Scope was then withdrawn from the patient. The patient tolerated the procedure well and was recovered in the GI recovery area. IMPRESSION: 1. Complete upper endoscopy to the distal duodenum. 2. No strictures or rings to explain the patient's dysphagia. 3. There was linear furrowing in esophagus suggestive of eosinophilic esophagitis, which might be an explanation for both her dysphagia as well as her epigastric pain. Esophageal biopsies obtained as above. 4. Mildly erythematous gastric mucosa diffusely. 5. Duodenal biopsies obtained to rule out celiac. FOLLOWUP: 1. Await pathology. 2. We will switch from omeprazole 20 mg daily to omeprazole 40 mg daily as the patient occasionally forgets the afternoon dose. 3. If biopsies are consistent with eosinophilic esophagitis, then I would recommend a trial of topical swallowed steroid therapy. 4. If biopsies are negative for eosinophilic esophagitis, then I would recommend a barium swallow test to ensure there is no subtle stricture missed on today's exam. Thank you very much for this referral. [id number]/[facility] #: [id number] JERO
== END | disposition home or self-care (01) ==
LOC: OR 11:07
PROVIDERS: ATTEND Internal Medicine Gastroenterology
DX: K21.0 Gastro-esophageal reflux disease with esophagitis (principal); R10.13 Epigastric pain; R13.14 Dysphagia, pharyngoesophageal phase; Z14.8 Genetic carrier of other disease; R74.0 Nonspecific elevation of levels of transaminase and lactic acid dehydrogenase [LDH]; Z87.891 Personal history of nicotine dependence
CPT/HCPCS: 88305; A9270-GY; J1100; J2250; J2704; J3010

== ENCOUNTER 2018-06-15 15:08 | Emergency (ER) | payer OTHER ==
[2018-06-15 15:19] VITALS: BP 123/86
--- NOTE | 2018-06-15 15:34 | UC ---
Cardiac HPI - HPI Summary HPI Summary: 37-year-old female comes in with a chief complaint of chest pain. Started about 20 minutes ago to the middle of her chest it's tight and squeezing and sharp and it radiates to the middle of her back. No complaint of any abdominal pain. Patient reports 3 days ago she had a similar episode 4 days ago she also had a similar episode she reports that is about the fourth time this is happened. Pain is worse is 10 out of 10. Patient was walking when the pain started. Taking deep breath does make the pain worse. She did have an endoscopy yesterday with a biopsy of her small bowel. She has had problems with swallowing and esophageal motility in the past. There is a grandparent with a history of heart attacks at a later age. No other close relatives with cardiac history. She denies any prior history of DVT or pulmonary embolus. Denies SOB, sweating or nausea. Pain decreased to 2/10 in clinic. Drinking water increases the pain. No recent travel. - History of Current Complaint Chief Complaint: UCChestPain Stated Complaint: CHEST PAIN Time Seen by Provider: 06/15/18 15:11 Hx Last Menstrual Period: 06/13/18 Pain Intensity: 10 - Allergy/Home Medications Allergies/Adverse Reactions: Allergies Allergy/AdvReac Type Severity Reaction Status Date / Time latex Allergy Rash Verified 06/15/18 15:19 Environmental Allergy Eyes Uncoded 06/14/18 12:05 Itchy/Swollen/Red/Watery Metals Allergy Unknown Uncoded 06/14/18 12:05 Reaction Details Home Medications: Home Medications Relicor 06/15/18 [History] PMH/Surg Hx/FS Hx/Imm Hx Previously Healthy: Yes Other History Of: Negative For: Anticoagulant Therapy - Surgical History Surgical History: Yes Surgery Procedure, Year, and Place: 4 C-sections,. gallbladder 12/2011,. tubal ligation, 2011 - Family History Known Family History: Positive: Cardiac Disease, Hypertension - Social History Alcohol Use: Rare Alcohol Amount: 2 PER MONTH Substance Use Type: Marijuana Substance Use Comment - Amount & Last Used: rarely Smoking Status (MU): Former Smoker Amount Used/How Often: PACK A DAY FOR 4 YRS Have You Smoked in the Last Year: No When Did the Patient Quit Smoking/Using Tobacco: 20 YEARS AGO Household Exposure Type: Cigarettes - Immunization History Most Recent Tetanus Shot: Within last 10 years Review of Systems All Other Systems Reviewed And Are Negative: Yes Constitutional: Positive: Negative Skin: Positive: Negative Eyes: Positive: Negative ENT: Positive: Negative Respiratory: Positive: Other - SEE HPI Cardiovascular: Positive: Chest Pain, Other - SEE HPI Gastrointestinal: Positive: Negative Motor: Positive: Negative Neurovascular: Positive: Negative Musculoskeletal: Positive: Negative Neurological: Positive: Negative Psychological: Positive: Negative Is Patient Immunocompromised?: No Physical Exam Triage Information Reviewed: Yes Appearance: Well-Appearing, Well-Nourished, Pain Distress - mild Vital Signs: Initial Vital Signs Temp 99.2 F 06/15/18 15:14 Pulse 94 06/15/18 15:14 Resp 18 06/15/18 15:14 BP 123/86 06/15/18 15:14 Pulse Ox 97 06/15/18 15:14 Vital Signs Reviewed: Yes Eye Exam: Normal Eyes: Positive: Conjunctiva Clear Neck: Positive: Supple Respiratory: Positive: Lungs clear, Normal breath sounds, No respiratory distress Cardiovascular: Positive: RRR Abdomen Description: Positive: Nontender, Soft Bowel Sounds: Positive: Present Musculoskeletal: Positive: Strength Intact, ROM Intact, No Edema, Other: - No calf tenderness Neurological Exam: Normal Neurological: Positive: Alert, Muscle Tone Normal Psychological Exam: Normal Psychological: Positive: Age Appropriate Behavior Skin Exam: Normal - Assessment/Plan Course Of Treatment: I recommended further evaluation in the emergency department. Pain is gone down to 2 out of 10 in clinic. Patient's had 2-3 prior similar episodes in the last week before she had the endoscopy. Oxygen saturation respiratory rate breath sounds are all normal. No pedal edema no calf tenderness. No tachycardia. I discussed the EKG with the patient I do not see any ischemic changes. We discussed going by ambulance. The patient declined she prefers to drive herself. - Clinical Impression Provider Diagnosis: Chest pain Discharge - Sign-Out/Discharge Documenting (check all that apply): Patient Departure All imaging exams completed and their final reports reviewed: No Studies - Discharge Plan Condition: Stable Disposition: HOME-RECOMMEND TO ED Patient Education Materials: Chest Pain (ED) Referrals: Polo Ruano, [employer] [Primary Care Provider] - Additional Instructions: GO DIRECTLY TO THE EMERGENCY DEPARTMENT FOR FURTHER EVALUATION. - Billing Disposition and Condition Condition: STABLE Disposition: Home-Recommend to ED
== END 2018-06-15 15:45 | disposition home health service (06) ==
LOC: UCEAST 15:08
DX: R07.89 Other chest pain (principal); Z91.040 Latex allergy status; Z91.048 Other nonmedicinal substance allergy status; Z87.891 Personal history of nicotine dependence
CPT/HCPCS: 99212; G0463

== ENCOUNTER → 2018-06-15 16:08 | Emergency (ER) | payer OTHER ==
[2018-06-15 18:14] LABS: ABS Basophils 0.1 10^3/ul (0-0.2); ABS Eosinophils 0.1 10^3/ul (0-0.6); ABS Monocytes 1.1 10^3/ul (0-0.8); Eosinophil % 0.5 %; Hematocrit 37 % (35-47); Hemoglobin 12.4 g/dL (12.0-16.0); Lymphocyte % 28.1 %; Mean Corpuscular HGB Conc 33 g/dL (31-36); Mean Corpuscular Hemoglobin 29 pg (27-31); Mean Corpuscular Volume 87 fL (80-97); Mean Platelet Volume 7.1 fL (7.4-10.4); Platelet Count 304 10^3/uL (150-450); Red Cell Distribution Width 14 % (10.5-15); White Blood Count 14.3 10^3/uL (3.5-10.8)
[2018-06-15 18:33] LABS: ALT 27 U/L (7-52); AST 20 U/L (13-39); Albumin 4.2 g/dL (3.2-5.2); Albumin/Globulin Ratio 1.3 (1-3); Alkaline Phosphatase 57 U/L (34-104); Anion Gap 5 mmol/L (2-11); BUN/Creatinine Ratio 19.3 (8-20); Blood Urea Nitrogen 17 mg/dL (6-24); CO2 Carbon Dioxide 31 mmol/L (22-32); Calcium 9.4 mg/dL (8.6-10.3); Chloride 101 mmol/L (101-111); EGFR Non-African American 71.9 (>60); Globulin 3.2 g/dL (2-4); Glucose 105 mg/dL (70-100); Potassium 3.4 mmol/L (3.5-5.0); Sodium 137 mmol/L (135-145); Total Protein 7.4 g/dL (6.4-8.9)
[2018-06-15 18:42] LABS: HCG Pregnancy < 0.60 mIU/mL
--- NOTE | 2018-06-15 20:50 | ED ---
HPI Chest Pain - HPI Summary HPI Summary: Patient complains of 4 episodes of sternal chest pain radiating to the back over the past week. Each episode lasts about 15 minutes of intense pain. Mild chest ache at this time. Pain described as clenching, stabbing, worse with deep inhalation, worse with drinking water. Patient sent from to ED for further evaluation. Patient has history of dysphagia, endoscopy yesterday without dilation. History of narrow esophagus. Denies fever, cough, sore throat, CP SOB, N/V/D, abdominal pain, change in urine, change in BM. Medical history is narrow esophagus. Nonsmoker. Denies EtOH. Denies recreational drug use. Denies OCP or estrogen, recent surgery or trauma, recent long travel , recent immobility, , history of cancer. - History of Current Complaint Chief Complaint: EDChestPainROMI Time Seen by Provider: 06/15/18 18:03 Hx Obtained From: Patient Hx Last Menstrual Period: 06/13/18 Onset/Duration: Started Days Ago Timing: Intermittent Initial Severity: Severe Current Severity: Mild Pain Intensity: 2 Pain Scale Used: 0-10 Numeric Chest Pain Location: Mid Sternal Chest Pain Radiates To:: Arm - left Character: Pressure/Squeezing, Sharp/Stabbing Aggravating Factor(s): Deep Breaths Alleviating Factor(s): Nothing Associated Signs and Symptoms: Positive: Chest Pain - Allergy/Home Medications Allergies/Adverse Reactions: Allergies Allergy/AdvReac Type Severity Reaction Status Date / Time latex Allergy Rash Verified 06/15/18 15:19 Environmental Allergy Eyes Uncoded 06/14/18 12:05 Itchy/Swollen/Red/Watery Metals Allergy Unknown Uncoded 06/14/18 12:05 Reaction Details PMH/Surg Hx/FS Hx/Imm Hx Endocrine/Hematology History: Denies: Hx Anticoagulant Therapy, Hx Blood Disorders, Hx Blood Transfusions, Hx Bone Marrow Disease, Hx Diabetes, Hx Systemic Lupus Erythematosus, Hx Sickle Cell Disease, Hx Thyroid Disease, Hx Anemia, Hx Unexplained Bleeding, Other Endocrine/Hematological Disorders Cardiovascular History: Reports: Hx Hypotension, Hx Syncope Denies: Hx Aneurysm, Hx Angina, Hx Angioplasty, Hx Auto Implanted Cardiovert Defib, Hx Cardiac Arrest, Hx Cardiomegaly, Hx Congenital Heart Disease, Hx Congestive Heart Failure, Hx Coronary Artery Disease, Hx Deep Vein Thrombosis, Hx Hypercholesterolemia, Hx Hypertension, Hx Myocardial Infarction, Hx Pacemaker /ICD, Hx Peripheral Vascular Disease, Hx Rheumatic Fever, Hx Valvular Heart Disease, Other Cardiovascular Problems/Disorders Respiratory History: Reports: Hx Seasonal Allergies Denies: Hx Asthma, Hx Chronic Bronchitis, Hx Chronic Obstructive Pulmonary Disease (COPD), Hx Cystic Fibrosis, Hx Lung Cancer, Hx Pleural Effusion, Hx Pneumonia, Hx Pulmonary Edema, Hx Pulmonary Embolism, Hx Sleep Apnea, Other Respiratory Problems/Disorders GI History: Reports: Hx Gall Bladder Disease - removed., Hx Gastroesophageal Reflux Disease, Other GI Disorders - PAIN IN LIVER AREA, LIVER LEVELS ARE RISING. Denies: Hx Cirrhosis, Hx Crohn's Disease, Hx Diverticulosis, Hx Gastrointestinal Bleed, Hx Hiatal Hernia, Hx Irritable Bowel, Hx Jaundice, Hx Obstructive Bowel, Hx Ileostomy, Hx Pyloric Stenosis, Hx Ulcer, Hx Urosepsis History: Denies: Hx Acute Renal Failure, Hx Benign Prostatic Hyperplasia, Hx Chronic Renal Failure, Hx Dialysis, Hx Kidney Infection, Hx Kidney Stones, Hx Renal Disease, Other Problems/Disorders Musculoskeletal History: Reports: Hx Arthritis - KNUCKLES, Hx Back Problems Denies: Hx Bursitis, Hx Congenital Bone Abnormalities, Hx Fibromyalgia, Hx Gout, Hx Orthopedic Injury, Hx Osteoporosis, Hx Scoliosis, Hx Tendonitis, Other Musculoskeletal History Sensory History: Reports: Hx Contacts or Glasses - BOTH WILL WEAR GLASSES Denies: Hx Cataracts, Hx Glaucoma, Hx Hearing Aid Opthamlomology History: Reports: Hx Contacts or Glasses - BOTH WILL WEAR GLASSES Denies: Hx Cataracts, Hx Glaucoma Neurological History: Denies: Hx Dementia, Hx Developmental Delay, Hx Headaches, Hx Migraine, Hx Seizures, Hx Spinal Cord Injury, Hx Transient Ischemic Attacks (TIA), Other Neuro Impairments/Disorders Psychiatric History: Denies: Hx Anxiety, Hx Attention Deficit Hyperactivity Disorder, Hx Eating Disorder, Hx Depression, Hx Panic Disorder, Hx Post Traumatic Stress Disorder, Hx Inpatient Treatment, Hx Community Mental Health Tx, Hx Schizophrenia, Hx Bipolar Disorder, Hx Suicide Attempt, Hx Substance Abuse, Other Psychiatric Issues/Disorders - Cancer History Hx Chemotherapy: No - Surgical History Surgery Procedure, Year, and Place: 4 C-sections,. gallbladder 12/2011,. tubal ligation, 2011 Hx Anesthesia Reactions: No Infectious Disease History: No Infectious Disease History: Denies: Hx Clostridium Difficile, Hx Hepatitis, Hx Human Immunodeficiency Virus (HIV), Hx of Known/Suspected MRSA, Hx Shingles, Hx Tuberculosis, Hx Known/ Suspected VRE, Hx Known/Suspected VRSA, History Other Infectious Disease, Traveled Outside the [place] in Last 30 Days - Family History Known Family History: Positive: Cardiac Disease, Hypertension - Social History Alcohol Use: Rare Alcohol Amount: 2 PER MONTH Substance Use Type: Reports: Marijuana Substance Use Comment - Amount & Last Used: rarely Smoking Status (MU): Former Smoker Amount Used/How Often: PACK A DAY FOR 4 YRS Have You Smoked in the Last Year: No Review of Systems Constitutional: Negative Eyes: Negative ENT: Negative Positive: Chest Pain Respiratory: Negative Gastrointestinal: Negative Genitourinary: Negative Musculoskeletal: Negative Skin: Negative Neurological: Negative Psychological: Normal All Other Systems Reviewed And Are Negative: Yes Physical Exam - Summary Physical Exam Summary: Chest pain not reproducible. Lung sounds clear to auscultation bilaterally. RRR. Abdomen soft nontender. No peripheral edema. Triage Information Reviewed: Yes Vital Signs On Initial Exam: Initial Vitals Temp Pulse Resp BP Pulse Ox 98.7 F 84 16 126/85 98 06/15/18 16:17 06/15/18 16:17 06/15/18 16:17 06/15/18 16:17 06/15/18 16:17 Vital Signs Reviewed: Yes Appearance: Positive: Well-Appearing Skin: Positive: Warm Head/Face: Positive: Normal Head/Face Inspection Eyes: Positive: Normal ENT: Positive: Normal ENT inspection Neck: Positive: Supple Respiratory/Lung Sounds: Positive: Clear to Auscultation Cardiovascular: Positive: Normal Abdomen Description: Positive: Nontender Musculoskeletal: Positive: Normal Neurological: Positive: Normal Psychiatric: Positive: Normal AVPU Assessment: Alert - Cristian Coma Scale Best Eye Response: 4 - Spontaneous Best Motor Response: 6 - Obeys Commands Best Verbal Response: 5 - Oriented Coma Scale Total: 15 Diagnostics - Vital Signs Vital Signs Temp Pulse Resp BP Pulse Ox 06/15/18 20:20 13 107/60 06/15/18 20:00 15 06/15/18 19:50 14 105/60 06/15/18 19:20 12 110/57 06/15/18 19:00 13 06/15/18 18:50 16 105/70 06/15/18 18:00 84 17 97 06/15/18 17:50 73 18 121/76 98 06/15/18 17:49 21 06/15/18 16:17 98.7 F 84 16 126/85 98 - Laboratory Lab Results: Lab Results 06/15/18 06/15/18 06/15/18 Range/Units 18:04 18:04 18:04 WBC 14.3 H (3.5-10.8) 10^3/uL RBC 4.30 (3.70-4.87) 10^6 /uL Hgb 12.4 (12.0-16.0) g/dL Hct 37 (35-47) % MCV 87 (80-97) fL MCH 29 (27-31) pg MCHC 33 (31-36) g/dL RDW 14 (10.5-15) % Plt Count 304 (150-450) 10^3/uL MPV 7.1 L (7.4-10.4) fL Neut % (Auto) 63.3 % Lymph % (Auto) 28.1 % Mingo % (Auto) 7.5 % Eos % (Auto) 0.5 % Baso % (Auto) 0.6 % Absolute Neuts (auto) 9.0 H (1.5-7.7) 10^3/ul Absolute Lymphs (auto) 4.0 (1.0-4.8) 10^3/ul Absolute Monos (auto) 1.1 H (0-0.8) 10^3/ul Absolute Eos (auto) 0.1 (0-0.6) 10^3/ul Absolute Basos (auto) 0.1 (0-0.2) 10^3/ul Absolute Nucleated RBC 0.0 10^3/ul Nucleated RBC % 0.0 D-Dimer, Quantitative (Less Than 230) ng/mL Sodium 137 (135-145) mmol/L Potassium 3.4 L (3.5-5.0) mmol/L Chloride 101 (101-111) mmol/L Carbon Dioxide 31 (22-32) mmol/L Anion Gap 5 (2-11) mmol/L BUN 17 (6-24) mg/dL Creatinine 0.88 (0.51-0.95) mg/dL Est GFR ( Amer) 87.0 (>60) Est GFR (Non-Af Amer) 71.9 (>60) BUN/Creatinine Ratio 19.3 (8-20) Glucose 105 H (70-100) mg/dL Lactic Acid 0.6 (0.5-2.0) mmol/L Calcium 9.4 (8.6-10.3) mg/dL Total Bilirubin 0.60 (0.2-1.0) mg/dL AST 20 (13-39) U/L ALT 27 (7-52) U/L Alkaline Phosphatase 57 (34-104) U/L Troponin I 0.00 (<0.04) ng/mL Total Protein 7.4 (6.4-8.9) g/dL Albumin 4.2 (3.2-5.2) g/dL Globulin 3.2 (2-4) g/dL Albumin/Globulin Ratio 1.3 (1-3) Beta HCG, Quant < 0.60 mIU/mL 06/15/18 Range/Units 18:29 WBC (3.5-10.8) 10^3/uL RBC (3.70-4.87) 10^6 /uL Hgb (12.0-16.0) g/dL Hct (35-47) % MCV (80-97) fL MCH (27-31) pg MCHC (31-36) g/dL RDW (10.5-15) % Plt Count (150-450) 10^3/uL MPV (7.4-10.4) fL Neut % (Auto) % Lymph % (Auto) % Mingo % (Auto) % Eos % (Auto) % Baso % (Auto) % Absolute Neuts (auto) (1.5-7.7) 10^3/ul Absolute Lymphs (auto) (1.0-4.8) 10^3/ul Absolute Monos (auto) (0-0.8) 10^3/ul Absolute Eos (auto) (0-0.6) 10^3/ul Absolute Basos (auto) (0-0.2) 10^3/ul Absolute Nucleated RBC 10^3/ul Nucleated RBC % D-Dimer, Quantitative < 200 (Less Than 230) ng/mL Sodium (135-145) mmol/L Potassium (3.5-5.0) mmol/L Chloride (101-111) mmol/L Carbon Dioxide (22-32) mmol/L Anion Gap (2-11) mmol/L BUN (6-24) mg/dL Creatinine (0.51-0.95) mg/dL Est GFR ( Amer) (>60) Est GFR (Non-Af Amer) (>60) BUN/Creatinine Ratio (8-20) Glucose (70-100) mg/dL Lactic Acid (0.5-2.0) mmol/L Calcium (8.6-10.3) mg/dL Total Bilirubin (0.2-1.0) mg/dL AST (13-39) U/L ALT (7-52) U/L Alkaline Phosphatase (34-104) U/L Troponin I (<0.04) ng/mL Total Protein (6.4-8.9) g/dL Albumin (3.2-5.2) g/dL Globulin (2-4) g/dL Albumin/Globulin Ratio (1-3) Beta HCG, Quant mIU/mL Result Diagrams: 06/15/18 18:04 06/15/18 18:04 Lab Statement: Any lab studies that have been ordered have been reviewed, and results considered in the medical decision making process. Chest Pain Course/Dx - Course Course Of Treatment: Patient complains of 4 episodes of sternal chest pain radiating to the back over the past week. Each episode lasts about 15 minutes of intense pain. Mild chest ache at this time. Pain described as clenching, stabbing, worse with deep inhalation, worse with drinking water. Patient sent from to ED for further evaluation. Patient has history of dysphagia, endoscopy yesterday without dilation. History of narrow esophagus. Denies fever, cough, sore throat, CP SOB, N/V/D, abdominal pain, change in urine, change in BM. Medical history is narrow esophagus. Nonsmoker. Denies EtOH. Denies recreational drug use. Denies OCP or estrogen, recent surgery or trauma , recent long travel, recent immobility, , history of cancer. Physical exam:Chest pain not reproducible. Lung sounds clear to auscultation bilaterally. RRR. Abdomen soft nontender. No peripheral edema. Vital signs within normal limits. WBC 14.3, otherwise Labs unremarkable. EKG sinus rhythm. Chest x-ray negative for acute process. D-dimer negative. Esophageal spasms due to existing esophageal disease are possible source of chest pain. Patient states she did not mention chest pain to GI yesterday when she went for an endoscopy. Patient advised to follow-up with GI for further evaluation. Patient understands and approves plan. - Diagnoses Provider Diagnoses: Atypical chest pain Discharge - Sign-Out/Discharge Documenting (check all that apply): Patient Departure Patient Received Moderate/Deep Sedation with Procedure: No - Discharge Plan Condition: Stable Disposition: HOME Patient Education Materials: Chest Pain (ED), Esophageal Spasm (ED) Referrals: Polo Ruano, [employer] [Primary Care Provider] - Additional Instructions: Follow-up with your GI doctor for further evaluation of possible esophageal spasm. Return to the ED for any new or worsening symptoms. - Billing Disposition and Condition Condition: STABLE Disposition: Home
[2018-06-15 20:57] VITALS: BP 108/57
== END | disposition home or self-care (01) ==
LOC: ED 16:08
DX: R07.89 Other chest pain (principal); I95.9 Hypotension, unspecified; R55 Syncope and collapse; K21.9 Gastro-esophageal reflux disease without esophagitis; Z91.040 Latex allergy status; Z87.891 Personal history of nicotine dependence
CPT/HCPCS: 36415; 71046; 80053; 83605; 84484; 84702; 85025; 85379; 93005; 99283

== ENCOUNTER 2018-10-28 10:37 | Emergency (ER) | payer OTHER ==
[2018-10-28 10:50] VITALS: BP 107/68
[2018-10-28] MEDS ORDERED: Ondansetron ODT TAB* 4 MG PO ONE (11:40)
--- NOTE | 2018-10-28 11:48 | UC ---
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 She had avoided until the last 24 hours when she developed nausea and diarrhea. She's had 4 bouts of diarrhea in the past 24 hours but no vomiting. Denies any abdominal pain and no urinary symptoms. - History of Current Complaint Chief Complaint: UCAbdominalPain Stated Complaint: NAUSEA Time Seen by Provider: 10/28/18 11:15 Hx Obtained From: Patient Hx Last Menstrual Period: 10/01/18 ?: No Onset/Duration: Sudden Onset Timing: Intermittent Episodes Lasting: Severity Initially: Mild Severity Currently: Mild Pain Intensity: 0 Location: Other - Denies abdominal pain Aggravating Factor(s): Nothing Alleviating Factor(s): Nothing Nausea/Vomiting Presence: Nauseated Nausea/Vomiting Duration: 0-12 hours Diarrhea Presence: Yes Diarrhea Frequency: Every 3-4 hours Diarrhea Duration: 0-12 hours Diarrhea Characteristics: Other - Loose watery stools - Allergies/Home Medications Allergies/Adverse Reactions: Allergies Allergy/AdvReac Type Severity Reaction Status Date / Time latex Allergy Rash Verified 10/28/18 10:50 Environmental Allergy Eyes Uncoded 10/28/18 10:50 Itchy/Swollen/Red/Watery Metals Allergy Unknown Uncoded 10/28/18 10:50 Reaction Details PMH/Surg Hx/FS Hx/Imm Hx Previously Healthy: Yes Other History Of: Negative For: Anticoagulant Therapy - Surgical History Surgical History: Yes Surgery Procedure, Year, and Place: 4 C-sections,. gallbladder 12/2011,. tubal ligation, 2011 - Family History Known Family History: Positive: Cardiac Disease, Hypertension - Social History Alcohol Use: Rare Alcohol Amount: 2 PER MONTH Substance Use Type: Marijuana Substance Use Comment - Amount & Last Used: rarely Smoking Status (MU): Former Smoker Amount Used/How Often: PACK A DAY FOR 4 YRS Have You Smoked in the Last Year: No When Did the Patient Quit Smoking/Using Tobacco: 20 YEARS AGO Household Exposure Type: Cigarettes - Immunization History Most Recent Tetanus Shot: Within last 10 years Review of Systems All Other Systems Reviewed And Are Negative: Yes Gastrointestinal: Positive: Diarrhea - Four bouts of diarrhea in the past 24 hours., Nausea. Negative: Abdominal Pain, Vomiting Genitourinary: Negative: Dysuria Is Patient Immunocompromised?: No Physical Exam Triage Information Reviewed: Yes Appearance: Well-Appearing, No Pain Distress, Well-Nourished Vital Signs: Initial Vital Signs Temp 98.1 F 10/28/18 10:46 Pulse 78 10/28/18 10:46 Resp 18 10/28/18 10:46 BP 107/68 10/28/18 10:46 Pulse Ox 100 10/28/18 10:46 Vital Signs Reviewed: Yes Eyes: Positive: Conjunctiva Clear ENT: Positive: Hearing grossly normal, Pharynx normal, TMs normal, Uvula midline Neck: Positive: Supple, Nontender, No Lymphadenopathy Respiratory: Positive: Lungs clear, Normal breath sounds, No respiratory distress, No accessory muscle use Cardiovascular: Positive: RRR, No Murmur, Pulses Normal, Brisk Capillary Refill Abdomen Description: Positive: Nontender, No Organomegaly, Soft. Negative: CVA Tenderness (R), CVA Tenderness (L), Distended, Guarding, Hepatomegaly, McBurney' s Point Tenderness, Splenomegaly Bowel Sounds: Positive: Present Musculoskeletal Exam: Normal Neurological Exam: Normal Psychological Exam: Normal Skin Exam: Normal Naus/Vom/Diarrhea Course/Dx - Course Course Of Treatment: The patient is comfortable here. She was given Zofran 4 mg and a prescription for that. She is to increase fluids, go home and rest, no work until Tuesday. After today she hasn't next 2 days off. She is to follow-up with a primary care provider for continued diarrhea and go to the emergency room if she develops vomiting and diarrhea to the point where she feels like she could pass out. - Differential Dx/Diagnosis Provider Diagnosis: Diarrhea Is Visit Related: No Condition At Discharge: Fair Discharge ED - Sign-Out/Discharge Documenting (check all that apply): Patient Departure All imaging exams completed and their final reports reviewed: No Studies - Discharge Plan Condition: Good Disposition: HOME Prescriptions: Ondansetron ODT TAB* [Zofran 4 MG Odt TAB*] 4 mg PO Q8H PRN #10 tab.odt PRN Reason: Nausea Patient Education Materials: Acute Diarrhea (ED) Forms: *Work Release Referrals: Polo Ruano, [employer]ER [Primary Care Provider] - Additional Instructions: Increase fluids, rest, follow-up in the emergency room if you develop vomiting and diarrhea to the point where you feel like to going to pass out. Follow-up with your primary care provider if no improvement in 3 or 4 days. - Billing Disposition and Condition Condition: GOOD Disposition: Home
--- NOTE | 2018-10-29 16:01 | UC ---
- Progress Note Progress Note: Urine culture from October 28 comes back with her preliminary Escherichia coli greater than 10,000. Susceptibilities are still pending. Patient is not on an antibiotic. Nursing to call patient and inform them of the results and to start taking Keflex 500 mg by mouth 3 times a day for 7 days which I have sent a prescription in for. If the patient is worse they should seek reevaluation and further care. Course/Dx - Diagnoses Provider Diagnoses: Diarrhea Is Visit Related: No Discharge ED - Sign-Out/Discharge Documenting (check all that apply): Patient Departure All imaging exams completed and their final reports reviewed: No Studies - Discharge Plan Condition: Good Disposition: HOME Prescriptions: Cephalexin CAP* [Keflex CAP*] 500 mg PO TID #21 cap Ondansetron ODT TAB* [Zofran 4 MG Odt TAB*] 4 mg PO Q8H PRN #10 tab.odt PRN Reason: Nausea Patient Education Materials: Acute Diarrhea (ED) Forms: *Work Release Referrals: Polo Ruano NP [Primary Care Provider] - Additional Instructions: Increase fluids, rest, follow-up in the emergency room if you develop vomiting and diarrhea to the point where you feel like to going to pass out. Follow-up with your primary care provider if no improvement in 3 or 4 days. - Billing Disposition and Condition Condition: GOOD Disposition: Home
== END 2018-10-28 11:50 | disposition home or self-care (01) ==
LOC: UCEAST 10:37
DX: R19.7 Diarrhea, unspecified (principal); Z91.040 Latex allergy status; Z87.891 Personal history of nicotine dependence
CPT/HCPCS: 81003; 84702; 87077; 87086; 87186; 99212; A9270-GY; G0463

== ENCOUNTER 2019-02-28 11:24 | Day surgery (SDC) | payer OTHER ==
[~2019-02-28 11:24] MED LIST changes: -Dexamethasone IV* 4 MG/ML 1 ML (4 MG) ONE; -DiMENhydriNATE IV* 50 MG/ML VIAL IV PUSH PRN; -Famotidine IV* 10 MG/ML 2 ML (20 mg) ONE; -Glycopyrrolate IV* 0.2 MG/ML 1 ML VIAL ONE; -KETAMINE HCL* 50 MG/ML 10 ML VIAL ONE; -Lidocaine 2% PF * 5 ML VIAL ONE; -Midazolam* 1 MG/ML 5 ML VIAL (5 MG) ONE; -Naloxone* 0.4 MG/ML 1 ML VIAL IV PRN; -Ondansetron ODT TAB* 4 MG ONE; -Ondansetron TAB* 4 MG PO ONE; -PROCHLORPERAZINE INJ 5 MG/ML 2 ML VIAL IV PRN; -Propofol* 10 MG/ML 20 ML BTL ONE; -fentaNYL* 50 MCG/ML 2 ML VIAL (100 MCG VIAL) IV PRN; -fentaNYL* 50 MCG/ML 2 ML VIAL (100 MCG VIAL) ONE; -oxyCODONE/Acetamin 5/325 MG* TAB PO PRN
[2019-02-28] MEDS ORDERED: Dexamethasone IV* 4 MG/ML 1 ML (4 MG) ONE (12:11)
[2019-02-28] MEDS ORDERED: Famotidine IV* 10 MG/ML 2 ML (20 mg) ONE (12:11)
[2019-02-28] MEDS ORDERED: ceFAZolin 2 GM PREMIX in ORs 0 GM/0 ML BAG ONE (12:11)
[2019-02-28] MEDS ORDERED: fentaNYL* 50 MCG/ML 2 ML VIAL (100 MCG VIAL) ONE (13:47)
[2019-02-28] MEDS ORDERED: Lidocaine 2% PF * 5 ML VIAL ONE (13:48)
[2019-02-28] MEDS ORDERED: Midazolam* 1 MG/ML 2 ML VIAL (2 MG) ONE (13:48)
[2019-02-28] MEDS ORDERED: Propofol* 10 MG/ML 20 ML BTL ONE (13:48)
[2019-02-28] MEDS ORDERED: Ondansetron INJ* 2 MG/ML VIAL ONE (13:48)
[2019-02-28] MEDS ORDERED: Succinylcholine* 20 MG/ML 10 ML VIAL ONE (13:50)
[2019-02-28] MEDS ORDERED: fentaNYL* 50 MCG/ML 2 ML VIAL (100 MCG VIAL) IV PRN (14:47)
[2019-02-28] MEDS ORDERED: DiMENhydriNATE IV* 50 MG/ML VIAL IV PUSH PRN (14:47)
[2019-02-28] MEDS ORDERED: Naloxone* 0.4 MG/ML 1 ML VIAL IV PRN (14:47)
[2019-02-28] MEDS ORDERED: Ondansetron INJ* 2 MG/ML VIAL IV PRN (14:47)
[2019-02-28 17:19] VITALS: BP 111/76
--- NOTE | 2019-03-01 05:55 | PRO ---
CC: Polo Ruano NP * DATE OF PROCEDURE: 02/28/19 [facility] PROCEDURE: EGD with biopsy. REFERRING PROVIDER: Polo Ruano NP. INDICATION: The patient has significant reflux. Workup has demonstrated eosinophilia in the esophagus despite being on high-dose PPI. Concerning for eosinophilic esophagitis. She was started on swallowed Flovent. She noted some improvement in swallowing on the Flovent. She was given samples of Dexilant and felt that this controlled her reflux the best. Unfortunately, her insurance would not cover this medicine. She is on Protonix 2 pills a day, which she feels does not work very well for reflux. MEDICATIONS GIVEN: By Anesthesia. DESCRIPTION OF PROCEDURE: Full disclosure of risks was reviewed with the patient as detailed on the consent form. The patient was placed in the left lateral decubitus position and monitored with continuous pulse oximetry, capnography, interval blood pressure monitoring, and direct observation. A bite -block was placed between the patient's teeth. An adult gastroscope was then inserted into the patient's mouth and advanced down the esophagus, into the stomach, and into the distal duodenum. Findings and interventions are described below. FINDINGS: Esophagus was a tubular structure without rings or strictures. There was mild linear furrowing in the distal esophagus. GE junction was mildly irregular with proximal most extent occurring at 37 cm. GE junction occurred at 38 cm. The scope was then advanced into the stomach. Stomach was examined in the forward and retroflexed views. There was an at least moderate amount of solid and semisolid food debris in the stomach. The gastric mucosa that was able to be visualized appeared normal. The scope was advanced into the duodenum to at least the third portion. Duodenal mucosa was normal. Biopsies were obtained from the duodenum. Scope was then withdrawn back into the esophagus. Biopsies were obtained from irregular Z-line. Biopsies also obtained from the distal, mid, and proximal esophagus. The scope was then withdrawn from the patient. The patient tolerated the procedure well and was recovered in the GI recovery area. IMPRESSION: 1. Complete upper endoscopy to distal duodenum. 2. Mild linear furrowing in distal duodenum. 3. Moderate amount of solid and semi-solid food debris in stomach raising concern for gastroparesis as possible explanation for refractory gastroesophageal reflux disease. No clear risk factors for gastroparesis identified in the patient's history. FOLLOWUP: 1. Await pathology. 2. Continue PPI twice daily. Will recheck with the insurance to see if prior authorization can be pursued that will allow Dexilant to be covered. 3. Continue Flovent for now. 3. Will schedule gastric emptying study given concern for gastroparesis. Thank you very much for this referral. [id number]/[facility] #: [id number] JERO
== END 2019-02-28 17:24 | disposition home or self-care (01) ==
LOC: OR 11:24
PROVIDERS: ATTEND Internal Medicine Gastroenterology
DX: K20.0 Eosinophilic esophagitis (principal); K21.9 Gastro-esophageal reflux disease without esophagitis; E66.3 Overweight
CPT/HCPCS: 88305; J0330; J0690; J1100; J2250; J2405; J2704; J3010

== ENCOUNTER 2019-04-26 15:56 | Emergency (ER) | payer OTHER ==
--- OUTSIDE RECORDS SUMMARY | 2019-04-26 19:00 | XMS REPORT | Continuity of Care Document ---
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 [phone] Problems Active Problems Provider Date Lumbar sprain Leslie Villar MD Onset: 03/07/2012 Elevated levels of transaminase & lactic Mehnaz Brooks PA-C Onset: acid dehydrogenase Genetic disorder carrier Mehnaz Brooks PA-C Onset: 02/16/2018 Esophageal dysphagia Mehnaz Brooks PA-C Onset: 02/16/2018 Abdominal pain RADHA Jason Onset: 06/28/2014 Obesity RADHA Jason Onset: 06/11/2014 Right upper quadrant pain RADHA Jason Onset: 06/11/2014 Constipation RADHA Jason Onset: 06/11/2014 Social History Type Date Description Comments Sex Unknown Tobacco Use Start: Unknown End: Unknown Patient is a former smoker Smoking Status Reviewed: 04/02/19 Patient is a former smoker Allergies, Adverse Reactions, Alerts Active Allergies Reaction Severity Comments Date Latex 06/11/2014 Metals 06/11/2014 Medications Active Medications SIG Qnty Indications Ordering Date Provider Metoclopramide HCL Take 5 mg (5 mL) 600ml Mireya 04/02/2019 5mg/5ML fifteen minutes MD Olga Solution before a meal and at bedtime. Pantoprazole Sodium take 1 tablet 30tabs Mireya 01/31/2019 40mg once daily. take MD Olga Tablets DR 30-60 minutes before eating. Flovent HFA [place] 2 puffs 12gm Mireya 2018 220mcg/Act into mouth and MD Olga Aerosol swallow twice daily. do not inhale. do not eat or drink for 30 minutes after dose. History Medications Omeprazole Take 1 capsule by 60caps Mireya Espinoza, 03/22/2019 - 40mg mouth twice daily MD 03/22/2019 Capsules Esomeprazole Take 1 Capsule By 60Caps Mireya Espinoza, 03/22/2019 - Magnesium Mouth Twice A Day MD 04/02/[address] Omeprazole Take 1 capsule by 30caps Mireya Espinoza, 03/22/2019 - 40mg mouth every day 04/02/2019 Capsules (30-60 minutes before a meal) Esomeprazole Take 1 capsule by 60caps Mireya Espinoza, 03/20/2019 - Magnesium mouth twice daily. 03/19/2019 40mg Capsules Esomeprazole Take 1 Capsule By 60Caps Mireya Espinoza, 03/20/2019 - Magnesium Mouth Twice A Day MD 03/21/2019 40mg Capsules Dexilant Take 1 capsule by 30caps Mireya Espinoza, 03/12/2019 - 60mg mouth every day MD 04/02/2019 Capsules Dexilant Take 1 capsule by 30caps Mireya Espinoza, 01/19/2019 - 60mg mouth every day 03/12/2019 Capsules Budesonide mix 2 ampules with 120ml Mireya Espinoza, 11/20/2018 - 0.5mg/2ML 10 packets of 01/09/2019 Suspension splenda and drink twice daily, avoid eating or drinking for 30 minutes after Budesonide Please See 240ml Mireya Espinoza, 11/20/2018 - 0.5mg/2ML Attached For 2018 Suspension Detailed Directions Immunizations Description No Information Available Vital Signs Date Vital Result Comment 04/02/2019 4:06pm Height 69 inches 5'9" Weight 186.00 lb BMI (Body Mass Index) 27.5 kg/m2 01/09/2019 8:50am Height 69 inches 5'9" Weight 184.00 lb BP Systolic 128 mmHg BP Diastolic 78 mmHg Heart Rate 72 /min BMI (Body Mass Index) 27.2 kg/m2 Results Test Acquired Date Facility Test Result H/L Range Note Surgical 02/28/2019 [facility] Surgical SEE RESULT 1 Pathology Pathology BELOW PDFReport SEE IMAGE 1 SEE RESULT BELOW Name: L[address] [facility] : [address]: Mireya Espinoza MD Acct: [id number] Unit: [id number] AGE: 38 Location: OR Re02/28/19 SEX: F Status: [facility] SPEC: [id number] FLETCHER: 02/28/19-[address]: Mireya Reddy MD REQ: [id number] RECD: 02/28/19-160 STATUS: MAIA MALAVE DR: Polo Ruano CHEF DE CUISINE _ ORDERED: LEVEL 4/5 FINAL DIAGNOSIS 1. Duodenum, biopsy: -- Benign small intestinal mucosa with no significant pathologic abnormalities. -- No evidence of villous blunting or increased intraepithelial lymphocytes. 2. Gastroesophageal junction, biopsy: -- Benign squamous and columnar-type mucosa with chronic inflammation. -- Intestinal metaplasia is absent. -- Dysplasia is absent. 3. Esophagus, distal, biopsy: -- Benign squamous mucosa with markedly increased intraepithelial eosinophils (greater than 40 per high-power field). -- No columnar component present for evaluation. 4. Esophagus, mid, biopsy: -- Benign squamous mucosa with mild erosive changes. -- No evidence of eosinophilic esophagitis. 5. Esophagus, proximal, biopsy: -- Benign squamous mucosa with mild erosive changes. -- No evidence of eosinophilic esophagitis. CONTINUED ON NEXT PAGE DEPARTMENT OF PATHOLOGY, [address] [place] [address] Emerson Tomlinson M.D. Director [facility] # [id number] CLINICAL HISTORY Follow up eosinophilic esophagitis POST-OPERATIVE DIAGNOSIS EGD: esophagus - linear furrowing in distal esophagus; biopsy; irregular gastroesophageal junction at 38 cm; gastric - moderate amount of solid; antral erythema; duodenum - normal; prominent lacteals biopsy GROSS DESCRIPTION 1. The specimen is received in formalin labeled, Biopsy Duodenum, and consists of three almanza-pink irregular to polypoid soft tissue fragments ranging from 0.5 x 0.4 x 0.2 cm to 0.7 x 0.4 x 0.3 cm, which are entirely submitted in one cassette. 2. The specimen is received in formalin labeled, Biopsy EG Junction, and consists of a 1.0 x 0.6 x 0.3 cm aggregate of speckled almanza-pink irregular to polypoid soft tissue fragments, which is entirely submitted in one cassette. 3. The specimen is received in formalin labeled, Biopsy Distal Esophagus, and consists of a 1.2 x 0.9 x 0.2 cm aggregate of byers-white irregular to polypoid soft tissue fragments, is entirely submitted in one cassette. 4. The specimen is received in formalin labeled, Biopsy Mid Esophagus, and consists of a 0.9 x 0.8 x 0.2 cm aggregate of byers-pink irregular to polypoid soft tissue fragments, which is entirely submitted in one cassette. 5. The specimen is received in formalin labeled, Biopsy Proximal Esophagus , and consists of a 0.8 x 0.5 x 0.2 cm aggregate of almanza-pink irregular to polypoid soft tissue fragments, which is entirely submitted in one cassette. Signed by and Reported on: Patsy Minor MD 03/01/19 1355 END OF REPORT DEPARTMENT OF PATHOLOGY, [address] [place] [address] Emerson Tomlinson M.D. Director [facility] # [id number] SEE RESULT BELOW Name: L[address] [facility] : [address]: Mireya Espinoza MD Acct: [id number] Unit: [id number] AGE: 38 Location: OR Re02/28/19 SEX: F Status: [facility] SPEC: [id number] FLETCHER: 02/28/19-[address] [facility] [address]: Mireya Reddy MD REQ: [id number] RECD: 02/28/19-1606 STATUS: MAIA MALAVE DR: Polo Ruano CHEF DE CUISINE _ ORDERED: LEVEL 4/5 FINAL DIAGNOSIS 1. Duodenum, biopsy: -- Benign small intestinal mucosa with no significant pathologic abnormalities. -- No evidence of villous blunting or increased intraepithelial lymphocytes. 2. Gastroesophageal junction, biopsy: -- Benign squamous and columnar-type mucosa with chronic inflammation. -- Intestinal metaplasia is absent. -- Dysplasia is absent. 3. Esophagus, distal, biopsy: -- Benign squamous mucosa with markedly increased intraepithelial eosinophils (greater than 40 per high-power field). -- No columnar component present for evaluation. 4. Esophagus, mid, biopsy: -- Benign squamous mucosa with mild erosive changes. -- No evidence of eosinophilic esophagitis. 5. Esophagus, proximal, biopsy: -- Benign squamous mucosa with mild erosive changes. -- No evidence of eosinophilic esophagitis. CONTINUED ON NEXT PAGE DEPARTMENT OF PATHOLOGY, [address] [place] [address] Emerson Tomlinson M.D. Director [facility] # [id number] CLINICAL HISTORY Follow up eosinophilic esophagitis POST-OPERATIVE DIAGNOSIS EGD: esophagus - linear furrowing in distal esophagus; biopsy; irregular gastroesophageal junction at 38 cm; gastric - moderate amount of solid; antral erythema; duodenum - normal; prominent lacteals biopsy GROSS DESCRIPTION 1. The specimen is received in formalin labeled, Biopsy Duodenum, and consists of three almanza-pink irregular to polypoid soft tissue fragments ranging from 0.5 x 0.4 x 0.2 cm to 0.7 x 0.4 x 0.3 cm, which are entirely submitted in one cassette. 2. The specimen is received in formalin labeled, Biopsy EG Junction, and consists of a 1.0 x 0.6 x 0.3 cm aggregate of speckled almanza-pink irregular to polypoid soft tissue fragments, which is entirely submitted in one cassette. 3. The specimen is received in formalin labeled, Biopsy Distal Esophagus, and consists of a 1.2 x 0.9 x 0.2 cm aggregate of byers-white irregular to polypoid soft tissue fragments, is entirely submitted in one cassette. 4. The specimen is received in formalin labeled, Biopsy Mid Esophagus, and consists of a 0.9 x 0.8 x 0.2 cm aggregate of byers-pink irregular to polypoid soft tissue fragments, which is entirely submitted in one cassette. 5. The specimen is received in formalin labeled, Biopsy Proximal Esophagus , and consists of a 0.8 x 0.5 x 0.2 cm aggregate of almanza-pink irregular to polypoid soft tissue fragments, which is entirely submitted in one cassette. Signed by and Reported on: Patsy Minor MD 03/01/19 1355 END OF REPORT DEPARTMENT OF PATHOLOGY, [address] [place] [address] Emerson Tomlinson M.D. Director [facility] # [id number] SEE RESULT BELOW Name: L[address] : [address]: Mireya Espinoza MD Acct: [id number] Unit: [id number] AGE: 38 Location: OR Re02/28/19 SEX: F Status: [facility] SPEC: [id number] FLETCHER: 02/28/19-[address] [facility] [address]: Mireya Reddy MD REQ: [id number] RECD: 02/28/19-160 STATUS: MAIA MALAVE DR: Polo Ruano CHEF DE CUISINE _ ORDERED: LEVEL 4/5 FINAL DIAGNOSIS 1. Duodenum, biopsy: -- Benign small intestinal mucosa with no significant pathologic abnormalities. -- No evidence of villous blunting or increased intraepithelial lymphocytes. 2. Gastroesophageal junction, biopsy: -- Benign squamous and columnar-type mucosa with chronic inflammation. -- Intestinal metaplasia is absent. -- Dysplasia is absent. 3. Esophagus, distal, biopsy: -- Benign squamous mucosa with markedly increased intraepithelial eosinophils (greater than 40 per high-power field). -- No columnar component present for evaluation. 4. Esophagus, mid, biopsy: -- Benign squamous mucosa with mild erosive changes. -- No evidence of eosinophilic esophagitis. 5. Esophagus, proximal, biopsy: -- Benign squamous mucosa with mild erosive changes. -- No evidence of eosinophilic esophagitis. CONTINUED ON NEXT PAGE DEPARTMENT OF PATHOLOGY, [address] [place] [address] Emerson Tomlinson M.D. Director [facility] # [id number] CLINICAL HISTORY Follow up eosinophilic esophagitis POST-OPERATIVE DIAGNOSIS EGD: esophagus - linear furrowing in distal esophagus; biopsy; irregular gastroesophageal junction at 38 cm; gastric - moderate amount of solid; antral erythema; duodenum - normal; prominent lacteals biopsy GROSS DESCRIPTION 1. The specimen is received in formalin labeled, Biopsy Duodenum, and consists of three almanza-pink irregular to polypoid soft tissue fragments ranging from 0.5 x 0.4 x 0.2 cm to 0.7 x 0.4 x 0.3 cm, which are entirely submitted in one cassette. 2. The specimen is received in formalin labeled, Biopsy EG Junction, and consists of a 1.0 x 0.6 x 0.3 cm aggregate of speckled almanza-pink irregular to polypoid soft tissue fragments, which is entirely submitted in one cassette. 3. The specimen is received in formalin labeled, Biopsy Distal Esophagus, and consists of a 1.2 x 0.9 x 0.2 cm aggregate of byers-white irregular to polypoid soft tissue fragments, is entirely submitted in one cassette. 4. The specimen is received in formalin labeled, Biopsy Mid Esophagus, and consists of a 0.9 x 0.8 x 0.2 cm aggregate of byers-pink irregular to polypoid soft tissue fragments, which is entirely submitted in one cassette. 5. The specimen is received in formalin labeled, Biopsy Proximal Esophagus , and consists of a 0.8 x 0.5 x 0.2 cm aggregate of almanza-pink irregular to polypoid soft tissue fragments, which is entirely submitted in one cassette. Signed by and Reported on: Patsy Minor MD 03/01/19 1355 END OF REPORT DEPARTMENT OF PATHOLOGY, [address] [place] [address] Emerson Tomlinson M.D. Director [facility] # [id number] Procedures Date Code Description Status 02/28/2019 26741 EGD+Biopsy Single Or Multiple Completed Medical Devices Description No Information Available Encounters Type Date Location Provider Dx Diagnosis Office Visit 01/09/2019 Gastroenterology Mireya K20.0 Eosinophilic 8:45a [facility] chris Espinoza MD K21.0 Gastro-esophageal reflux disease with esophagitis R10.11 Right upper quadrant pain Assessments Date Code Description Provider 04/02/2019 K20.0 Eosinophilic esophagitis Mireya Espinoza MD 04/02/2019 K21.0 Gastro-esophageal reflux disease with Mireya Espinoza MD esophagitis 04/02/2019 K31.84 Gastroparesis Mireya Espinoza MD 02/28/2019 K21.9 Gastro-esophageal reflux disease without Mireya Reddy MD esophagitis 01/09/2019 K20.0 Eosinophilic esophagitis Mireya Espinoza MD 01/09/2019 K21.0 Gastro-esophageal reflux disease with Mireya Espinoza MD esophagitis 01/09/2019 R10.11 Right upper quadrant pain Mireya Espinoza MD Plan of Treatment No Information Available Functional Status Description No Information Available Mental Status Description No Information Available Referrals Description No Information Available
[2019-04-26 19:04] VITALS: BP 101/62
--- NOTE | 2019-04-26 19:24 | UC ---
FLU HPI - HPI Summary HPI Summary: 38-year-old female presenting with runny nose 3 days and sore throat, chills, body aches, and fever that began today. Patient states she does not know what her fever was this morning but states she was "burning up" and was sent home from work. Denies cough. Denies shortness of breath. Denies nausea and vomiting. States she has been taking ibuprofen for her fever. Does state that she was in [facility] from last week through this past Tuesday. - History of Current Complaint Chief Complaint: UCGeneralIllness Stated Complaint: RESP COMPLAINT Hx Obtained From: Patient Hx Last Menstrual Period: 10/01/18 Pain Intensity: 6 Pain Scale Used: 0-10 Numeric - Allergy/Home Medications Allergies/Adverse Reactions: Allergies Allergy/AdvReac Type Severity Reaction Status Date / Time broccoli Allergy REACTION Verified 04/26/19 19:04 THROUGH ALLERGY TESTING latex Allergy Rash Verified 04/26/19 19:04 sesame seed Allergy REACTION Verified 04/26/19 19:04 THROUGH ALLERGY TESTING tomato Allergy REACTION Verified 04/26/19 19:04 THROUGH ALLERGY TESTING Environmental Allergy Eyes Uncoded 04/26/19 19:04 Itchy/Swollen/Red/Watery YATES Allergy REACTION Uncoded 04/26/19 19:04 THROUGH ALLERGY TESTING Metals Allergy Unknown Uncoded 04/26/19 19:04 Reaction Details WHEAT, RYE Allergy REACTION Uncoded 04/26/19 19:04 THROUGH ALLERGY TESTING Home Medications: Home Medications 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 gallbladder 12/2011,. tubal ligation, 2011. EGD. [place], 2013 - Family History Known Family History: Positive: Cardiac Disease, Hypertension - Social History Alcohol Use: Weekly Alcohol Amount: 2 PER MONTH Substance Use Type: None Substance Use Comment - Amount & Last Used: rarely Smoking Status (MU): Former Smoker Amount Used/How Often: PACK A DAY FOR 4 YRS Have You Smoked in the Last Year: No When Did the Patient Quit Smoking/Using Tobacco: 20 YEARS AGO Household Exposure Type: Cigarettes - Immunization History Most Recent Tetanus Shot: Within last 10 years Review of Systems All Other Systems Reviewed And Are Negative: Yes Constitutional: Positive: Fever, Chills, Fatigue ENT: Positive: Sore Throat, Nasal Discharge Respiratory: Positive: Negative Cardiovascular: Positive: Negative Gastrointestinal: Positive: Negative Musculoskeletal: Positive: Myalgia Neurological/Mental Status: Positive: Negative Physical Exam Triage Information Reviewed: Yes Appearance: No Pain Distress, Well-Nourished, Ill-Appearing Vital Signs: Initial Vital Signs Temp 98.0 F 04/26/19 18:59 Pulse 75 04/26/19 18:59 Resp 16 04/26/19 18:59 BP 101/62 04/26/19 18:59 Pulse Ox 98 04/26/19 18:59 Lab Results 04/26/19 04/26/19 Range/Units 19:19 19:23 Influenza A (Rapid) Negative (Negative) Influenza B (Rapid) Negative (Negative) Group A Strep Rapid Negative (Negative) Vital Signs Reviewed: Yes Eyes: Positive: Conjunctiva Clear ENT: Positive: Hearing grossly normal, Pharyngeal erythema, TMs normal, Uvula midline. Negative: Nasal congestion, Nasal drainage, Tonsillar swelling, Tonsillar exudate Neck exam: Normal Neck: Positive: Supple, Nontender, No Lymphadenopathy Respiratory Exam: Normal Respiratory: Positive: Lungs clear, Normal breath sounds, No respiratory distress, No accessory muscle use Cardiovascular Exam: Normal Cardiovascular: Positive: RRR Neurological: Positive: Alert Psychological: Positive: Age Appropriate Behavior Skin Exam: Normal - No erythema or ecchymosis Flu Course/Dx - Course Course Of Treatment: Patient recently traveled back from [facility], so NEENA Butler, contacted Aarti Angel to inquire about covid19 precautions. Aarti Angel stated precautions are not required at this time as the patient does not have a cough or shortness of breath. Negative rapid strep and flu. I discussed likely viral illness instructed to continue symptomatic treatment. Instructed to follow up with PCP if symptoms persist and to go to the ED if any new or worsening symptoms occur. Patient voiced understanding and agreed with the treatment plan. - Differential Dx/Diagnosis Differential Diagnosis/HQI/PQRI: Influenza, Upper Respiratory Infection Provider Diagnosis: Viral URI Discharge ED - Sign-Out/Discharge Documenting (check all that apply): Patient Departure All imaging exams completed and their final reports reviewed: No Studies - Discharge Plan Condition: Stable Disposition: HOME Patient Education Materials: Viral Syndrome (ED) Referrals: Polo Ruano NP [Primary Care Provider] - If Needed Additional Instructions: Your flu and strep tests were negative today. Your symptoms are likely caused bya virus and should resolve without treatment. You may continue to take ibuprofen and/or tylenol as directed. Get plenty of rest and fluids. Follow up with your primary care provider if symptoms do not improve within 7- 10 days. - Billing Disposition and Condition Condition: STABLE Disposition: Home
[2019-04-26 19:35] LABS: Influenza A Molecular Negative (Negative); Influenza B Molecular Negative (Negative)
== END 2019-04-26 20:00 | disposition home or self-care (01) ==
LOC: UCEAST 15:56
DX: J06.9 Acute upper respiratory infection, unspecified (principal); Z91.018 Allergy to other foods; Z91.040 Latex allergy status; Z91.09 Other allergy status, other than to drugs and biological substances; Z87.891 Personal history of nicotine dependence
CPT/HCPCS: 87651; 99211; G0463

== ENCOUNTER 2020-05-08 19:44 | Inpatient (IN) ==
[2020-05-08] MEDS ORDERED: NS 0.9% 1000 ml BAG 1,000 ML IV ONE (22:16)
[2020-05-08] MEDS ORDERED: Morphine 4 MG/ML VIAL (1 ml) IV PRN (22:16)
[2020-05-08] MEDS ORDERED: Morphine 4 MG/ML VIAL (1 ml) IV ONE (22:16)
[2020-05-08] MEDS ORDERED: Ondansetron 4 mg VIAL 2 MG/ML 2 ml VIAL IV ONE (22:16)
[2020-05-08 23:04] LABS: ABS Eosinophils 0.1 10^3/ul (0-0.6); ABS Lymphocytes 1.9 10^3/ul (1.0-4.8); ABS Monocytes 0.9 10^3/ul (0-0.8); ABS Neutrophils 9.3 10^3/ul (1.5-7.7); Eosinophil % 0.8 %; Hematocrit 38 % (35-47); Hemoglobin 12.9 g/dL (12.0-16.0); Lymphocyte % 15.6 %; Mean Corpuscular HGB Conc 34 g/dL (31-36); Mean Corpuscular Hemoglobin 30 pg (27-31); Mean Corpuscular Volume 90 fL (80-97); Mean Platelet Volume 8.6 fL (7.4-10.4); Platelet Count 221 10^3/uL (150-450); Red Blood Count 4.23 10^6 /uL (3.70-4.87); Red Cell Distribution Width 13 % (10-15); White Blood Count 12.3 10^3/uL (3.5-10.8)
[2020-05-08 23:21] LABS: ALT 302 U/L (7-52); Albumin 4.3 g/dL (3.2-5.2); Albumin/Globulin Ratio 1.4 (1-3); Alkaline Phosphatase 93 U/L (34-104); BUN/Creatinine Ratio 20.8 (8-20); Blood Urea Nitrogen 20 mg/dL (6-24); CO2 Carbon Dioxide 28 mmol/L (22-32); Calcium 9.1 mg/dL (8.6-10.3); Chloride 103 mmol/L (101-111); EGFR African American 77.9 (>60); EGFR Non-African American 64.4 (>60); Globulin 3.1 g/dL (2-4); Glucose 109 mg/dL (70-100); Lipase 12 U/L (11.0-82.0); Sodium 138 mmol/L (135-145); Total Protein 7.4 g/dL (6.4-8.9)
[2020-05-08 23:22] LABS: C Reactive Protein 3.52 mg/L (<8.01)
[2020-05-08 23:27] LABS: HCG Pregnancy < 0.60 mIU/mL
[2020-05-08 23:43] LABS: Anion Gap 7 mmol/L (2-11); Potassium 3.9 mmol/L (3.5-5.0)
[2020-05-08 23:56] LABS: AST 308 U/L (13-39)
[2020-05-09] MEDS ORDERED: Iohexol 300 (CONTRAST) 10 ML SDV IV ONE (00:09)
[2020-05-09] MEDS ORDERED: Prochlorperazine 5 mg/ml 2 ml VIAL (10 mg) IV ONE (01:33)
[2020-05-09] MEDS ORDERED: NS 0.9% 1000 ml BAG 1,000 ML IV ONE (01:34)
[2020-05-09 02:17] LABS: Urine Appearance Cloudy; Urine Bilirubin Negative (Negative); Urine Blood Negative (Negative); Urine Color Yellow; Urine Glucose Negative (Negative); Urine Ketones Negative (Negative); Urine Nitrite Negative (Negative); Urine Protein Negative (Negative); Urine Specific Gravity 1.051 (1.010-1.030); Urine Urobilinogen Negative (Negative)
[2020-05-09] MEDS ORDERED: Ondansetron 4 mg VIAL 2 MG/ML 2 ml VIAL IV PRN (02:41)
[2020-05-09] MEDS ORDERED: Magnesium Hydroxide LIQ 30 ML UDC PO PRN (02:42)
[2020-05-09] MEDS ORDERED: D5NS 0.9% 1000 ml BAG 1,000 ML IV SCH (03:00)
[2020-05-09 03:36] LABS: Urine Benzodiazepine Screen None Detected (None Detect); Urine Cannabinoids Screen Presumptive Positive (None Detect); Urine Opiates Screen Presumptive Positive (None Detect)
[2020-05-09] MEDS: Metoclopramide 5 MG/ML VIAL (10 mg) IV PRN (05:01)
[2020-05-09] MEDS: Al Hydrox/Mg Hydrox/Simet LIQ 30 ML UDC PO PRN ×2 (05:11→19:22)
[2020-05-09 05:23] LABS: ABS Eosinophils 0.3 10^3/ul (0-0.6); ABS Lymphocytes 2.9 10^3/ul (1.0-4.8); ABS Monocytes 0.8 10^3/ul (0-0.8); ABS Neutrophils 4.5 10^3/ul (1.5-7.7); Eosinophil % 3.2 %; Hematocrit 34 % (35-47); Hemoglobin 11.6 g/dL (12.0-16.0); Lymphocyte % 34.6 %; Mean Corpuscular HGB Conc 34 g/dL (31-36); Mean Corpuscular Hemoglobin 31 pg (27-31); Mean Corpuscular Volume 89 fL (80-97); Platelet Count 192 10^3/uL (150-450); Red Blood Count 3.78 10^6 /uL (3.70-4.87); Red Cell Distribution Width 13 % (10-15); White Blood Count 8.4 10^3/uL (3.5-10.8)
[2020-05-09 05:28] LABS: INR 1.17 (0.82-1.09)
[2020-05-09 05:39] LABS: Albumin 3.5 g/dL (3.2-5.2); Albumin/Globulin Ratio 1.4 (1-3); BUN/Creatinine Ratio 22.8 (8-20); EGFR African American 97.5 (>60); EGFR Non-African American 80.6 (>60); Globulin 2.5 g/dL (2-4); Potassium 3.6 mmol/L (3.5-5.0); Total Bilirubin 1.6 mg/dL (0.2-1.0)
[2020-05-09 05:55] LABS: Iron 109 ug/dL (50-212); Transferrin 194 mg/dL (203-362)
[2020-05-09 06:03] LABS: Acetaminophen < 15 mcg/mL
[2020-05-09 06:15] LABS: Ferritin 126.8 ng/mL (11-307)
[2020-05-09] MEDS: Senna TAB 8.6 mg TAB PO SCH (09:55)
[2020-05-09] MEDS ORDERED: Ondansetron 4 mg VIAL 2 MG/ML 2 ml VIAL IV ONE ×2 (10:09→11:05)
[2020-05-09] MEDS: Ondansetron 4 mg VIAL 2 MG/ML 2 ml VIAL IV SCH ×3 (11:45→23:20)
[2020-05-09] MEDS: Pantoprazole VIAL 40 MG VIAL IV SCH (11:50)
[2020-05-09 16:33] LABS: Hepatitis A Ab IgM Negative (Negative); Hepatitis B Core IgM Nonreactive (Nonreactive); Hepatitis B Surface Antigen Nonreactive (Nonreactive); Hepatitis C Antibody Negative (Negative)
[2020-05-10] MEDS: Metoclopramide 5 MG/ML VIAL (10 mg) IV PRN ×2 (02:51→15:46)
[2020-05-10 05:38] LABS: Hematocrit 34 % (35-47); Hemoglobin 11.7 g/dL (12.0-16.0); Mean Corpuscular HGB Conc 34 g/dL (31-36); Mean Corpuscular Hemoglobin 31 pg (27-31); Mean Corpuscular Volume 91 fL (80-97); Mean Platelet Volume 8.7 fL (7.4-10.4); Platelet Count 171 10^3/uL (150-450); Red Blood Count 3.77 10^6 /uL (3.70-4.87); Red Cell Distribution Width 13 % (10-15); White Blood Count 7.5 10^3/uL (3.5-10.8)
[2020-05-10] MEDS: Ondansetron 4 mg VIAL 2 MG/ML 2 ml VIAL IV SCH ×4 (05:47→20:57)
[2020-05-10 05:57] LABS: Albumin 3.6 g/dL (3.2-5.2); Albumin/Globulin Ratio 1.5 (1-3); BUN/Creatinine Ratio 14.1 (8-20); Calcium 7.9 mg/dL (8.6-10.3); EGFR African American 110.3 (>60); EGFR Non-African American 91.2 (>60); Globulin 2.4 g/dL (2-4); Potassium 4.1 mmol/L (3.5-5.0); Total Bilirubin 1.1 mg/dL (0.2-1.0)
[2020-05-10] MEDS: Senna TAB 8.6 mg TAB PO SCH (07:58)
[2020-05-10] MEDS: Pantoprazole VIAL 40 MG VIAL IV SCH ×2 (08:11→20:57)
[2020-05-10] MEDS ORDERED: Midazolam 2 mg/2 ml VIAL 1 mg/ml 2 ml VIAL (2 mg) ONE (08:40)
[2020-05-10] MEDS ORDERED: fentaNYL 100 mcg/2 ml 50 MCG/ML VIAL ONE ×2 (08:40→10:14)
[2020-05-10] MEDS ORDERED: Propofol 10 MG/ML 20 ML BTL ONE (08:40)
[2020-05-10] MEDS ORDERED: Rocuronium 50 mg VIAL 10 mg/ml 5 ml VIAL (50 mg) ONE (08:41)
[2020-05-10] MEDS ORDERED: Indomethacin 50 mg SUPP (NF) PR ONE (08:59)
[2020-05-10] MEDS ORDERED: Dexamethasone IV 4 MG/ML VIAL 1 ml VIAL ONE (10:05)
[2020-05-10] MEDS ORDERED: Ondansetron 4 mg VIAL 2 MG/ML 2 ml VIAL ONE (10:05)
[2020-05-10] MEDS ORDERED: fentaNYL 100 mcg/2 ml 50 MCG/ML VIAL IV PRN (10:21)
[2020-05-10] MEDS ORDERED: Naloxone 0.4 mg VIAL 0.4 mg/ml 1 ml VIAL IV PRN (10:21)
[2020-05-10] MEDS: Al Hydrox/Mg Hydrox/Simet LIQ 30 ML UDC PO PRN (18:16)
[2020-05-10] MEDS ORDERED: Lactated Ringers 1000 ml BAG 1,000 ML IV ONE (19:40)
[2020-05-10] MEDS: Senna TAB 8.6 mg TAB PO PRN (20:58)
[2020-05-11] MEDS: Ondansetron 4 mg VIAL 2 MG/ML 2 ml VIAL IV SCH ×7 (00:58→23:42)
[2020-05-11 04:49] LABS: ABS Eosinophils 0.1 10^3/ul (0-0.6); ABS Lymphocytes 3.5 10^3/ul (1.0-4.8); ABS Monocytes 0.9 10^3/ul (0-0.8); Eosinophil % 1.1 %; Hematocrit 31 % (35-47); Hemoglobin 10.5 g/dL (12.0-16.0); Lymphocyte % 33.2 %; Mean Corpuscular HGB Conc 34 g/dL (31-36); Mean Corpuscular Hemoglobin 30 pg (27-31); Mean Corpuscular Volume 90 fL (80-97); Mean Platelet Volume 8.7 fL (7.4-10.4); Platelet Count 164 10^3/uL (150-450); Red Blood Count 3.45 10^6 /uL (3.70-4.87); Red Cell Distribution Width 13 % (10-15); White Blood Count 10.5 10^3/uL (3.5-10.8)
[2020-05-11 05:03] LABS: Albumin 3.4 g/dL (3.2-5.2); Albumin/Globulin Ratio 1.4 (1-3); BUN/Creatinine Ratio 19.5 (8-20); Calcium 7.9 mg/dL (8.6-10.3); EGFR African American 100.5 (>60); Globulin 2.4 g/dL (2-4); Indirect Bilirubin 0.6 mg/dL (0.3-1.0); Potassium 3.9 mmol/L (3.5-5.0); Total Bilirubin 0.8 mg/dL (0.2-1.0); Total Protein 5.8 g/dL (6.4-8.9)
[2020-05-11] MEDS ORDERED: Morphine 2 MG/ML SYRINGE IV PRN (08:25)
[2020-05-11] MEDS: Pantoprazole VIAL 40 MG VIAL IV SCH ×2 (08:50→21:55)
[2020-05-11] MEDS ORDERED: CALCIUM GLUCONATE 1GM/50ML NS 1 GM/50 ML BAG IV ONE (09:30)
[2020-05-11] MEDS: Morphine 2 MG/ML SYRINGE IV PRN ×3 (12:21→20:27)
[2020-05-11] MEDS: Senna TAB 8.6 mg TAB PO PRN (12:23)
[2020-05-11] MEDS: Al Hydrox/Mg Hydrox/Simet LIQ 30 ML UDC PO PRN (12:31)
[2020-05-11 14:01] LABS: C Reactive Protein 6.43 mg/L (<8.01)
[2020-05-12] MEDS: Ondansetron 4 mg VIAL 2 MG/ML 2 ml VIAL IV SCH ×2 (05:06→09:46)
[2020-05-12 07:57] LABS: ABS Eosinophils 0.5 10^3/ul (0-0.6); ABS Lymphocytes 3.1 10^3/ul (1.0-4.8); ABS Monocytes 0.7 10^3/ul (0-0.8); Eosinophil % 7.2 %; Hematocrit 33 % (35-47); Hemoglobin 11.2 g/dL (12.0-16.0); Mean Corpuscular HGB Conc 34 g/dL (31-36); Mean Corpuscular Hemoglobin 31 pg (27-31); Mean Corpuscular Volume 89 fL (80-97); Mean Platelet Volume 9.1 fL (7.4-10.4); Platelet Count 184 10^3/uL (150-450); Red Blood Count 3.68 10^6 /uL (3.70-4.87); Red Cell Distribution Width 13 % (10-15); White Blood Count 7.3 10^3/uL (3.5-10.8)
[2020-05-12 08:17] LABS: Albumin 3.5 g/dL (3.2-5.2); Albumin/Globulin Ratio 1.4 (1-3); BUN/Creatinine Ratio 19.3 (8-20); EGFR African American 86.1 (>60); EGFR Non-African American 71.2 (>60); Globulin 2.5 g/dL (2-4); Potassium 3.8 mmol/L (3.5-5.0); Total Bilirubin 0.6 mg/dL (0.2-1.0)
[2020-05-12] MEDS ORDERED: Calcium Gluconate 2 GM in NS 0.9% 100 ml BAG 100 ML IV ONE (09:00)
[2020-05-12] MEDS: Pantoprazole VIAL 40 MG VIAL IV SCH (09:46)
[2020-05-12] MEDS ORDERED: Senna TAB 8.6 mg TAB PO ONE (10:30)
[2020-05-12] MEDS ORDERED: Ondansetron 4 mg VIAL 2 MG/ML 2 ml VIAL IV PRN (10:38)
[2020-05-12] MEDS ORDERED: Metoclopramide 5 MG/ML VIAL (10 mg) IV PRN (10:39)
[2020-05-12 11:56] VITALS: BP 117/67
[2020-05-12] MEDS ORDERED: Magnesium Hydroxide LIQ 30 ML UDC PO SCH (21:00)
== END 2020-05-12 18:15 | disposition home or self-care (01) ==
LOC: MED 19:44 → ED 19:44 → MED 05-10 08:12
PROVIDERS: ADMIT Internal Medicine; ATTEND Internal Medicine
PROC: O.GIERC (2020-05-10 08:30)